=== PATIENT | male | born 1970 | race Two or more races ===

== ENCOUNTER 2019-12-04 09:29 | Emergency (ER) | payer MEDICAID ==
[~2019-12-04 09:29] MED LIST: DOXY100C; METF1000; NOR10T; SULF-98
[2019-12-04 10:42] LABS: Nucleated Red Blood Cells % 0.1 %
[2019-12-04 10:50] LABS: Basophils # (auto) 0.1 10 ^3/uL (0-0.2); Basophils % (auto) 2.2 % (0.0-2.0); Eosinophils # (auto) 0.2 10 ^3/uL (0-0.8); Eosinophils % (auto) 4.7 % (0.0-7.0); Hemoglobin 15.7 g/dL (13.5-17.5); Lymphocytes # (auto) 0.7 10 ^3/uL (0.4-5.4); Lymphocytes % (auto) 15.6 % (10.0-50.0); Mean Corpuscular Hemoglobin 35.9 pg (28.0-32.0); Mean Corpuscular Volume 105.4 fL (80.0-100.0); Monocytes # (auto) 0.5 10 ^3/uL (0-1.3); Monocytes % (auto) 11.4 % (0.0-12.0); Neutrophils % (auto) 66.1 % (37.0-80.0); Platelet Count (auto) 154 10^3/uL (140-450); Red Blood Cells 4.36 10^6/uL (4.5-5.90); Red Cell Distribution Width 12.5 % (11.8-14.3); White Blood Cell 4.5 10^3/uL (4.4-10.8)
[2019-12-04 10:59] LABS: Albumin 3.2 g/dL (3.4-5.0); Calcium 8.6 mg/dL (8.5-10.1); Potassium 4.2 mmol/L (3.5-5.1)
[2019-12-04 11:05] LABS: Bilirubin, Total 0.5 mg/dL (0.2-1.0); Total Protein 7.4 g/dL (6.4-8.2)
[2019-12-04] MEDS ORDERED: LISINOPRIL 5 MG TAB PO SCH (13:30)
[2019-12-04] MEDS ORDERED: METF-372 PO (15:36)
[2019-12-04] MEDS ORDERED: MET25T PO (15:36)
[2019-12-04] MEDS ORDERED: LISI-275 PO (15:36)
[2019-12-04] MEDS ORDERED: METOPROLOL TARTRATE 50 MG TAB PO SCH (16:00)
--- NOTE | 2019-12-04 16:19 | NUR ---
ss consult Per ss consult home health safety evaluation. Patient agrees to home health. order has been sent to [facility]. [employer] corrections caseworker will work on auth for [facility]. Addendum: 12/04/19 at 1622 by Bonnie SUAZO Amended: Links added.
--- NOTE | 2019-12-04 16:35 | NUR ---
re-assessment Per Marilee at [facility] she has accepted patient for service to start on 12/06/2019. Addendum: 12/05/19 at 1124 by Bonnie SUAZO Amended: Links added.
[2019-12-04 17:25] VITALS: BP 172/95
[2019-12-04] MEDS ORDERED: METOPROLOL TARTRATE 25 MG TAB PO SCH (22:00)
--- NOTE | 2019-12-05 09:42 | NUR ---
I faxed home health order to [facility]-requesting authorization for [facility].
--- NOTE | 2019-12-05 14:17 | NUR ---
1415 12/05/19 I received a call from Aleksandra at [facility] letting me know that the authorization for [facility] is [id number].
== END 2019-12-04 19:24 | disposition home or self-care (01) ==
LOC: ER 09:29 → EDBD 09:29 → ER 18:03
DX: I25.10 Atherosclerotic heart disease of native coronary artery without angina pectoris (principal); E11.65 Type 2 diabetes mellitus with hyperglycemia; Z79.899 Other long term (current) drug therapy
CPT/HCPCS: 36415; 71045; 80053; 82962; 84484; 85025; 93005; 93306

== ENCOUNTER 2021-10-30 18:11 | Emergency (ER) | payer MEDICAID ==
[~2021-10-30] VITALS: Ht 162.6 cm; Wt 86.4 kg
[~2021-10-30 18:11] MED LIST changes: -DOXY100C; +LISI-275 PO; +MET25T PO; +METF-372 PO; -NOR10T; -SULF-98
[2021-10-30 18:26] VITALS: BP 129/82
[2021-10-30] MEDS ORDERED: SODIUM CHLORIDE 0.9% 1,000 ML IVB ONE (18:45)
[2021-10-30] MEDS ORDERED: PANTOPRAZOLE 40 MG/10 ML VIAL INJ IV ONE (18:45)
[2021-10-30 20:01] LABS: Basophils # (auto) 0.1 10 ^3/uL (0-0.2); Eosinophils # (auto) 0 10 ^3/uL (0-0.8); Eosinophils % (auto) 0.2 % (0.0-7.0); Mean Corpuscular Volume 104.3 fL (80.0-100.0); White Blood Cell 11.6 10^3/uL (4.4-10.8)
[2021-10-30 20:03] LABS: Basophils % (auto) 0.9 % (0.0-2.0); Hematocrit 41.1 % (41.0-53.0); Hemoglobin 13.7 g/dL (13.5-17.5); Lymphocytes % (auto) 8.4 % (10.0-50.0); Mean Corpuscular Hemoglobin 34.8 pg (28.0-32.0); Mean Corpuscular Hgb Conc. 33.4 g/dL (32.0-36.0); Monocytes # (auto) 0.7 10 ^3/uL (0-1.3); Monocytes % (auto) 6.4 % (0.0-12.0); Neutrophils # (auto) 9.8 10 ^3/uL (1.6-8.6); Neutrophils % (auto) 84.1 % (37.0-80.0); Nucleated Red Blood Cells % 0.1 %; Red Blood Cells 3.94 10^6/uL (4.5-5.90); Red Cell Distribution Width 13.1 % (11.8-14.3)
[2021-10-30 20:17] LABS: INR 1.16 (0.9-1.15); Partial Thromboplastin Time 27.9 sec (24.6-33.4)
[2021-10-30 20:26] LABS: Albumin 2.8 g/dL (3.4-5.0); BUN/Creatinine Ratio 31.4; Calcium 8.1 mg/dL (8.5-10.1)
[2021-10-30 20:28] LABS: Bilirubin, Total 1.6 mg/dL (0.2-1.0); Total Protein 6.6 g/dL (6.4-8.2)
== END 2021-10-30 19:50 | disposition left against medical advice (07) ==
LOC: ER 18:11 → EDBD 18:11 → ER 19:50
DX: R11.10 Vomiting, unspecified (principal); F10.10 Alcohol abuse, uncomplicated; E11.9 Type 2 diabetes mellitus without complications; Z79.899 Other long term (current) drug therapy; Y90.9 Presence of alcohol in blood, level not specified
CPT/HCPCS: 36415; 80053; 83690; 85025; 85610; 85730; 93005; 96361; 96374; 99284; C9113; J7030

== ENCOUNTER 2021-11-08 00:11 | Inpatient (IN) | payer MEDICAID ==
[~2021-11-08] VITALS: Ht 167.6 cm; Wt 99.6 kg
[2021-11-08] VITALS (78 sets, daily range): BP systolic 70–128; BP diastolic 26–85
[2021-11-08 00:46] LABS: Basophils # (auto) 0.1 10 ^3/uL (0-0.2); Mean Corpuscular Hgb Conc. 34.9 g/dL (32.0-36.0); Red Blood Cells 1.25 10^6/uL (4.5-5.90)
[2021-11-08 00:48] LABS: Basophils % (auto) 1.2 % (0.0-2.0); Eosinophils # (auto) 0.3 10 ^3/uL (0-0.8); Hematocrit 12.5 % (41.0-53.0); Lymphocytes # (auto) 1.4 10 ^3/uL (0.4-5.4); Lymphocytes % (auto) 16.2 % (10.0-50.0); Mean Corpuscular Hemoglobin 34.8 pg (28.0-32.0); Monocytes # (auto) 0.9 10 ^3/uL (0-1.3); Monocytes % (auto) 10.1 % (0.0-12.0); Neutrophils # (auto) 5.9 10 ^3/uL (1.6-8.6); Neutrophils % (auto) 69.5 % (37.0-80.0); Red Cell Distribution Width 18.7 % (11.8-14.3); White Blood Cell 8.5 10^3/uL (4.4-10.8)
[2021-11-08 00:56] LABS: Hemoglobin 4.3 g/dL (13.5-17.5)
[2021-11-08] MEDS ORDERED: SODIUM CHLORIDE 0.9% 1,000 ML IV ONE (01:00)
[2021-11-08 01:03] LABS: Albumin 1.8 g/dL (3.4-5.0); BUN/Creatinine Ratio 22.7; Calcium 6.9 mg/dL (8.5-10.1); Potassium 4.5 mmol/L (3.5-5.1)
[2021-11-08 01:06] LABS: Bilirubin, Total 0.2 mg/dL (0.2-1.0); INR 1.13 (0.9-1.15)
[2021-11-08] MEDS ORDERED: ALBUMIN 25% 100 ML IV ONE (05:15)
[2021-11-08] MEDS ORDERED: ONDANSETRON HCL 4 MG/2 ML VIAL IV PRN (05:15)
[2021-11-08] MEDS ORDERED: DEXTROSE (50%) 50ML SYRG IV PRN (05:15)
[2021-11-08] MEDS ORDERED: ACETAMINOPHEN 325 MG TAB PO PRN (05:15)
[2021-11-08] MEDS ORDERED: DOCUSATE SOD 100 MG CAP PO PRN (05:15)
[2021-11-08] MEDS ORDERED: CALCIUM GLUC 1,000mg/50ml-NS 50 ML IV ONE (05:15)
[2021-11-08] MEDS ORDERED: MORPHINE SULFATE INJ 2 MG/ml SYRG IV PRN (05:45)
[2021-11-08] MEDS ORDERED: NITROGLYCERIN 0.4 MG SL TAB SL PRN (05:45)
[2021-11-08] MEDS ORDERED: NOREPINEPHRINE 8 MG/250ML KIT 250 ML IV ONE (06:19)
[2021-11-08] MEDS: NOREPINEPHRINE 8 MG/250ML KIT 250 ML IV SCH ×3 (06:29→23:51)
[2021-11-08] MEDS: ACCU-CHEK COMFORT CURVE STRIP VI SCH ×4 (07:00→22:10)
[2021-11-08 08:08] LABS: Albumin 1.7 g/dL (3.4-5.0); Calcium 6.3 mg/dL (8.5-10.1); Potassium 5.2 mmol/L (3.5-5.1)
[2021-11-08 08:13] LABS: BUN/Creatinine Ratio 26.5; Basophils # (auto) 0.1 10 ^3/uL (0-0.2); Basophils % (auto) 0.6 % (0.0-2.0); Bilirubin, Total 0.4 mg/dL (0.2-1.0); Eosinophils # (auto) 0.1 10 ^3/uL (0-0.8); Eosinophils % (auto) 0.5 % (0.0-7.0); Hematocrit 24.2 % (41.0-53.0); Hemoglobin 7.8 g/dL (13.5-17.5); Lymphocytes # (auto) 2.1 10 ^3/uL (0.4-5.4); Lymphocytes % (auto) 11.6 % (10.0-50.0); Mean Corpuscular Hemoglobin 30.2 pg (28.0-32.0); Mean Corpuscular Hgb Conc. 32.3 g/dL (32.0-36.0); Mean Corpuscular Volume 93.3 fL (80.0-100.0); Monocytes # (auto) 1.5 10 ^3/uL (0-1.3); Monocytes % (auto) 8.5 % (0.0-12.0); Neutrophils % (auto) 78.8 % (37.0-80.0); Red Blood Cells 2.59 10^6/uL (4.5-5.90); Red Cell Distribution Width 16.3 % (11.8-14.3); Total Protein 3.3 g/dL (6.4-8.2); White Blood Cell 17.8 10^3/uL (4.4-10.8)
[2021-11-08] MEDS: SOD CHL 0.45% 1,000 ML IV SCH (09:15)
[2021-11-08] MEDS: InsuLIN REG 1unit/0.01ml Soln (100units/ml) SC SCH ×4 (09:15→22:14)
[2021-11-08] MEDS: MORPHINE SULFATE INJ 2 MG/ml SYRG IV PRN (09:30)
[2021-11-08] MEDS: FAMOTIDINE (10MG/ML) 2ML VL IV SCH (09:42)
[2021-11-08] MEDS ORDERED: GOLYTELY 4L KIT PO ONE (10:15)
[2021-11-08] MEDS ORDERED: LORazepam 2MG/ML-1ML VIAL ONE (17:37)
[2021-11-08] MEDS ORDERED: ROCURONIUM 10MG/ML 10ML VIAL IV ONE (17:42)
[2021-11-08] MEDS ORDERED: ETOMIDATE (2MG/ML) 20ML VIAL IV ONE ×2 (17:42→17:45)
[2021-11-08] MEDS ORDERED: SUCCINYLCHOLINE CHLORIDE 20 MG/ML 10ML VIAL IV ONE (17:43)
[2021-11-08] MEDS: LORazepam 2MG/ML-1ML VIAL IV PRN (17:45)
[2021-11-08] MEDS ORDERED: MIDAZOLAM DRIP 50 mg/50mL 50 ML IV ONE (17:45)
[2021-11-08] MEDS: fentaNYL Drip 2500mCg/250mlNS 250 ML IV SCH (18:31)
[2021-11-08] MEDS: MIDAZOLAM DRIP 50 mg/50mL 50 ML IV SCH ×3 (18:32→23:23)
[2021-11-08 18:42] LABS: Hematocrit 12.6 % (41.0-53.0); Mean Corpuscular Hemoglobin 31.2 pg (28.0-32.0); Mean Corpuscular Hgb Conc. 32.8 g/dL (32.0-36.0); Mean Corpuscular Volume 95.2 fL (80.0-100.0); Red Blood Cells 1.33 10^6/uL (4.5-5.90); Red Cell Distribution Width 16.6 % (11.8-14.3); White Blood Cell 10.8 10^3/uL (4.4-10.8)
[2021-11-08 18:52] LABS: Albumin 1.6 g/dL (3.4-5.0); Calcium 6.2 mg/dL (8.5-10.1)
[2021-11-08 18:54] LABS: BUN/Creatinine Ratio 20.4; Bilirubin, Total 0.3 mg/dL (0.2-1.0); Total Protein 3.1 g/dL (6.4-8.2)
[2021-11-08 18:58] LABS: Hemoglobin 4.1 g/dL (13.5-17.5)
[2021-11-08 18:59] LABS: Basophils % (manual) 0 (0.0-2.0); Blast Cells 0; Eosinophils % (manual) 0 (0-7); Myelocytes % 0; Promyelocytes % 0; Reactive Lymphocytes 0
[2021-11-08 19:37] LABS: Band Neutrophils % (manual) 4; Lymphocytes % (manual) 21 (10.0-50.0); Metamyelocytes % 1; Monocytes % (manual) 6 (0-12)
[2021-11-08] MEDS: PHENYLEPHRINE IV 250 ML IV SCH (19:56)
[2021-11-09] VITALS (106 sets, daily range): BP systolic 75–163; BP diastolic 28–85
[2021-11-09 01:16] LABS: Calcium 6.1 mg/dL (8.5-10.1)
[2021-11-09 01:19] LABS: Basophils # (auto) 0.1 10 ^3/uL (0-0.2); Basophils % (auto) 0.8 % (0.0-2.0); Eosinophils # (auto) 0 10 ^3/uL (0-0.8); Eosinophils % (auto) 0.1 % (0.0-7.0); Hematocrit 26.3 % (41.0-53.0); Hemoglobin 8.7 g/dL (13.5-17.5); Lymphocytes # (auto) 2.4 10 ^3/uL (0.4-5.4); Lymphocytes % (auto) 13.5 % (10.0-50.0); Mean Corpuscular Volume 90.9 fL (80.0-100.0); Monocytes # (auto) 2.6 10 ^3/uL (0-1.3); Monocytes % (auto) 14.4 % (0.0-12.0); Neutrophils # (auto) 12.8 10 ^3/uL (1.6-8.6); Neutrophils % (auto) 71.2 % (37.0-80.0); Nucleated Red Blood Cells % 0.4 %; Red Blood Cells 2.89 10^6/uL (4.5-5.90); Red Cell Distribution Width 15.1 % (11.8-14.3); White Blood Cell 17.9 10^3/uL (4.4-10.8)
[2021-11-09 01:21] LABS: Potassium 6.2 mmol/L (3.5-5.1)
[2021-11-09] MEDS ORDERED: CALCIUM GLUC 1,000mg/50ml-NS 50 ML IV ONE (02:00)
[2021-11-09] MEDS ORDERED: DEXTROSE (50%) 50ML SYRG IV ONE (02:00)
[2021-11-09] MEDS ORDERED: InsuLIN REG 1unit/0.01ml Soln (100units/ml) IV ONE (02:00)
[2021-11-09] MEDS ORDERED: ALBUTEROL SULF 2.5 MG/0.5ML(0.5%) NEB SOLN NEB ONE ×2 (02:00→02:30)
[2021-11-09] MEDS: SOD CHL 0.45% 1,000 ML IV SCH ×2 (02:41→09:14)
[2021-11-09] MEDS: PHENYLEPHRINE IV 250 ML IV SCH ×3 (03:05→19:45)
[2021-11-09] MEDS: MIDAZOLAM DRIP 50 mg/50mL 50 ML IV SCH ×6 (03:50→23:30)
[2021-11-09 04:43] LABS: Basophils # (auto) 0.2 10 ^3/uL (0-0.2); Basophils % (auto) 1.1 % (0.0-2.0); Eosinophils # (auto) 0.1 10 ^3/uL (0-0.8); Eosinophils % (auto) 0.5 % (0.0-7.0); Hematocrit 23.4 % (41.0-53.0); Hemoglobin 7.7 g/dL (13.5-17.5); Lymphocytes # (auto) 2.9 10 ^3/uL (0.4-5.4); Lymphocytes % (auto) 17.3 % (10.0-50.0); Mean Corpuscular Hemoglobin 30.3 pg (28.0-32.0); Mean Corpuscular Hgb Conc. 32.8 g/dL (32.0-36.0); Mean Corpuscular Volume 92.3 fL (80.0-100.0); Monocytes # (auto) 2.4 10 ^3/uL (0-1.3); Neutrophils # (auto) 11.4 10 ^3/uL (1.6-8.6); Neutrophils % (auto) 67.1 % (37.0-80.0); Nucleated Red Blood Cells % 0.9 %; Red Blood Cells 2.54 10^6/uL (4.5-5.90); Red Cell Distribution Width 15.6 % (11.8-14.3); White Blood Cell 16.9 10^3/uL (4.4-10.8)
[2021-11-09 05:13] LABS: Calcium 6.5 mg/dL (8.5-10.1); Potassium 4.7 mmol/L (3.5-5.1)
[2021-11-09 05:17] LABS: BUN/Creatinine Ratio 16.9; Bilirubin, Total 0.4 mg/dL (0.2-1.0); Total Protein 3.6 g/dL (6.4-8.2)
[2021-11-09] MEDS: NOREPINEPHRINE 8 MG/250ML KIT 250 ML IV SCH ×2 (07:13→14:19)
[2021-11-09] MEDS: InsuLIN REG 1unit/0.01ml Soln (100units/ml) SC SCH ×4 (07:46→23:03)
[2021-11-09] MEDS: ACCU-CHEK COMFORT CURVE STRIP VI SCH ×4 (07:46→22:57)
[2021-11-09] MEDS: FAMOTIDINE (10MG/ML) 2ML VL IV SCH (09:50)
[2021-11-09] MEDS: fentaNYL Drip 2500mCg/250mlNS 250 ML IV SCH ×2 (11:50→23:33)
[2021-11-09] MEDS ORDERED: FOLIC ACID 1 MG, MULTIPLE VITAMIN 10 ML, MAGNESIUM SULF SDV 50% 8 MEQ, THIAMINE INJ 100... INJ SCH ×5 (12:00)
[2021-11-09] MEDS: ALBUMIN 25% 100 ML IV SCH ×2 (14:53→22:55)
[2021-11-09] MEDS: OCTREOTIDE ACETATE 100 MCG/ML VL SUBCUT SCH ×2 (14:54→22:56)
[2021-11-09 15:07] LABS: Magnesium 1.5 mg/dL (1.6-2.6); Phosphorus 4.7 mg/dL (2.5-4.90)
[2021-11-09] MEDS: SODIUM BICARBONATE 50ML VIAL 100 ML in D5W 5% 1,000 ML IV SCH ×2 (15:50→22:56)
[2021-11-09] MEDS ORDERED: GOLYTELY 4L KIT PO ONE (16:00)
[2021-11-09 20:40] LABS: Hepatitis C Antibody Negative (Negative)
[2021-11-09 22:19] LABS: Basophils # (auto) 0.2 10 ^3/uL (0-0.2); Hemoglobin 7.3 g/dL (13.5-17.5); Mean Corpuscular Volume 90.5 fL (80.0-100.0); Monocytes # (auto) 1.7 10 ^3/uL (0-1.3); Red Cell Distribution Width 15.2 % (11.8-14.3); White Blood Cell 14.7 10^3/uL (4.4-10.8)
[2021-11-09 22:21] LABS: Basophils % (auto) 1.3 % (0.0-2.0); Eosinophils # (auto) 0.2 10 ^3/uL (0-0.8); Eosinophils % (auto) 1.4 % (0.0-7.0); Hematocrit 21.8 % (41.0-53.0); Lymphocytes % (auto) 7.1 % (10.0-50.0); Mean Corpuscular Hemoglobin 30.3 pg (28.0-32.0); Mean Corpuscular Hgb Conc. 33.5 g/dL (32.0-36.0); Monocytes % (auto) 11.6 % (0.0-12.0); Neutrophils # (auto) 11.5 10 ^3/uL (1.6-8.6); Neutrophils % (auto) 78.6 % (37.0-80.0); Nucleated Red Blood Cells % 0.8 %
[2021-11-09] MEDS ORDERED: SODIUM BICARBONATE 8.4 % INJ 50ML VIAL IV ONE (22:39)
[2021-11-10] VITALS (112 sets, daily range): BP systolic 92–151; BP diastolic 32–61
[2021-11-10] MEDS: PHENYLEPHRINE IV 250 ML IV SCH ×3 (04:05→20:45)
[2021-11-10 04:32] LABS: Hematocrit 20.2 % (41.0-53.0); Mean Corpuscular Hemoglobin 30.3 pg (28.0-32.0); Mean Corpuscular Hgb Conc. 33.5 g/dL (32.0-36.0); Mean Corpuscular Volume 90.6 fL (80.0-100.0); Red Blood Cells 2.23 10^6/uL (4.5-5.90); White Blood Cell 12.9 10^3/uL (4.4-10.8)
[2021-11-10 04:43] LABS: INR 1.24 (0.9-1.15); Partial Thromboplastin Time 41.5 sec (24.6-33.4)
[2021-11-10 04:49] LABS: Calcium 6.6 mg/dL (8.5-10.1); Potassium 4.9 mmol/L (3.5-5.1)
[2021-11-10 04:55] LABS: Hemoglobin 6.8 g/dL (13.5-17.5)
[2021-11-10 04:56] LABS: Basophils % (manual) 0 (0.0-2.0); Blast Cells 0; Eosinophils % (manual) 0 (0-7); Reactive Lymphocytes 0
[2021-11-10] MEDS ORDERED: SODIUM BICARBONATE 8.4 % INJ 50ML VIAL IV ONE (06:09)
[2021-11-10] MEDS: SODIUM BICARBONATE 50ML VIAL 100 ML in D5W 5% 1,000 ML IV SCH ×3 (06:22→21:50)
[2021-11-10] MEDS: ACCU-CHEK COMFORT CURVE STRIP VI SCH ×4 (06:27→21:50)
[2021-11-10] MEDS: InsuLIN REG 1unit/0.01ml Soln (100units/ml) SC SCH ×4 (06:28→21:55)
[2021-11-10] MEDS: OCTREOTIDE ACETATE 100 MCG/ML VL SUBCUT SCH ×3 (06:35→21:49)
[2021-11-10 07:31] LABS: Band Neutrophils % (manual) 10; Lymphocytes % (manual) 7 (10.0-50.0); Metamyelocytes % 5; Monocytes % (manual) 8 (0-12); Myelocytes % 3; Promyelocytes % 3
[2021-11-10] MEDS: ALBUMIN 25% 100 ML IV SCH (08:51)
[2021-11-10] MEDS ORDERED: MIDAZOLAM HCL 5 MG/ML-1ML VIAL ONE (08:58)
[2021-11-10] MEDS ORDERED: diphenhdrAMINE HCL 50 MG/1 ML VL ONE (08:58)
[2021-11-10] MEDS ORDERED: SODIUM CHLORIDE LOCK 0 ML ONE (08:58)
[2021-11-10] MEDS ORDERED: fentaNYL CITRATE 100 MCG/2 ML VL ONE (08:58)
[2021-11-10] MEDS: FAMOTIDINE (10MG/ML) 2ML VL IV SCH (10:10)
[2021-11-10] MEDS: MIDAZOLAM DRIP 50 mg/50mL 50 ML IV SCH ×2 (10:10→21:49)
[2021-11-10] MEDS ORDERED: PANTOPRAZOLE 40 MG/10 ML VIAL INJ IV ONE (11:00)
[2021-11-10] MEDS: fentaNYL Drip 2500mCg/250mlNS 250 ML IV SCH ×2 (12:00→23:49)
[2021-11-10 13:12] LABS: Protein, Urine 56.8 mg/dL (0.0-11.9)
[2021-11-10 19:10] LABS: Urine Bacteria NONE SEEN /hpf (None Seen); Urine Blood Negative /uL (Negative); Urine Hyaline Cast FEW /lpf (0 - 2); Urine Specific Gravity 1.015 (1.001-1.035); Urine WBC 4 /hpf (0 - 3)
[2021-11-10 19:38] LABS: Hemoglobin 7.6 g/dL (13.5-17.5)
[2021-11-10 19:39] LABS: Hematocrit 22.4 % (41.0-53.0)
[2021-11-10] MEDS: PANTOPRAZOLE 40 MG/10 ML VIAL INJ IV SCH (21:49)
[2021-11-10] MEDS: FOLIC ACID 1 MG in D5W 5% 50 ML INJ SCH (22:30)
[2021-11-10] MEDS: THIAMINE 100mg/ml INJ (200mg/2ml VIAL) IV SCH (22:39)
[2021-11-11] VITALS (105 sets, daily range): BP systolic 101–175; BP diastolic 35–88
[2021-11-11] MEDS: SODIUM BICARBONATE 50ML VIAL 100 ML in D5W 5% 1,000 ML IV SCH ×4 (02:40→20:00)
[2021-11-11 04:07] LABS: Basophils # (auto) 0.1 10 ^3/uL (0-0.2); Basophils % (auto) 0.7 % (0.0-2.0); Eosinophils # (auto) 0.1 10 ^3/uL (0-0.8); Eosinophils % (auto) 1.5 % (0.0-7.0); Mean Corpuscular Hemoglobin 29.6 pg (28.0-32.0); Monocytes # (auto) 0.9 10 ^3/uL (0-1.3); Neutrophils # (auto) 6.8 10 ^3/uL (1.6-8.6); White Blood Cell 8.6 10^3/uL (4.4-10.8)
[2021-11-11 04:09] LABS: Hematocrit 21.3 % (41.0-53.0); Lymphocytes # (auto) 0.8 10 ^3/uL (0.4-5.4); Lymphocytes % (auto) 9.1 % (10.0-50.0); Mean Corpuscular Hgb Conc. 32.7 g/dL (32.0-36.0); Mean Corpuscular Volume 90.4 fL (80.0-100.0); Monocytes % (auto) 10.1 % (0.0-12.0); Neutrophils % (auto) 78.6 % (37.0-80.0); Nucleated Red Blood Cells % 0.1 %; Red Blood Cells 2.35 10^6/uL (4.5-5.90); Red Cell Distribution Width 15.2 % (11.8-14.3)
[2021-11-11 04:33] LABS: Calcium 6.9 mg/dL (8.5-10.1)
[2021-11-11 04:35] LABS: BUN/Creatinine Ratio 22.8
[2021-11-11] MEDS: PHENYLEPHRINE IV 250 ML IV SCH ×3 (05:05→21:45)
[2021-11-11] MEDS: OCTREOTIDE ACETATE 100 MCG/ML VL SUBCUT SCH ×2 (06:23→22:00)
[2021-11-11] MEDS: ACCU-CHEK COMFORT CURVE STRIP VI SCH ×4 (06:23→22:30)
[2021-11-11] MEDS: InsuLIN REG 1unit/0.01ml Soln (100units/ml) SC SCH ×4 (06:25→22:30)
[2021-11-11] MEDS: NOREPINEPHRINE 8 MG/250ML KIT 250 ML IV SCH (06:30)
[2021-11-11] MEDS ORDERED: DOPamine 1600MCG/ML D5W 250 ML IV SCH ×2 (09:45→12:49)
[2021-11-11] MEDS: PANTOPRAZOLE 40 MG/10 ML VIAL INJ IV SCH ×2 (10:06→22:16)
[2021-11-11] MEDS: THIAMINE 100mg/ml INJ (200mg/2ml VIAL) IV SCH (10:06)
[2021-11-11] MEDS: FOLIC ACID 1 MG in D5W 5% 50 ML INJ SCH (10:17)
[2021-11-11] MEDS: MIDAZOLAM DRIP 50 mg/50mL 50 ML IV SCH (20:00)
[2021-11-11] MEDS: fentaNYL Drip 2500mCg/250mlNS 250 ML IV SCH (22:22)
[2021-11-11 22:47] LABS: Basophils # (auto) 0.1 10 ^3/uL (0-0.2); Basophils % (auto) 0.8 % (0.0-2.0); Eosinophils # (auto) 0.2 10 ^3/uL (0-0.8); Hematocrit 26.5 % (41.0-53.0); Hemoglobin 8.9 g/dL (13.5-17.5); Lymphocytes # (auto) 0.6 10 ^3/uL (0.4-5.4); Lymphocytes % (auto) 7.7 % (10.0-50.0); Mean Corpuscular Hemoglobin 30.2 pg (28.0-32.0); Mean Corpuscular Hgb Conc. 33.7 g/dL (32.0-36.0); Mean Corpuscular Volume 89.5 fL (80.0-100.0); Monocytes # (auto) 1.2 10 ^3/uL (0-1.3); Monocytes % (auto) 14.4 % (0.0-12.0); Neutrophils # (auto) 6.1 10 ^3/uL (1.6-8.6); Neutrophils % (auto) 75.1 % (37.0-80.0); Nucleated Red Blood Cells % 0.2 %; Red Blood Cells 2.96 10^6/uL (4.5-5.90); Red Cell Distribution Width 14.7 % (11.8-14.3); White Blood Cell 8.2 10^3/uL (4.4-10.8)
[2021-11-12] VITALS (99 sets, daily range): BP systolic 99–180; BP diastolic 55–87
[2021-11-12] MEDS: hydrALAZINE HCL 20 MG/ML VL IV PRN (00:12)
[2021-11-12] MEDS: MIDAZOLAM DRIP 50 mg/50mL 50 ML IV SCH ×6 (00:57→21:38)
[2021-11-12] MEDS: SODIUM BICARBONATE 50ML VIAL 100 ML in D5W 5% 1,000 ML IV SCH ×2 (04:00→10:41)
[2021-11-12 04:17] LABS: Basophils # (auto) 0.1 10 ^3/uL (0-0.2); Basophils % (auto) 0.8 % (0.0-2.0); Eosinophils # (auto) 0.2 10 ^3/uL (0-0.8); Eosinophils % (auto) 2.3 % (0.0-7.0); Hematocrit 26.6 % (41.0-53.0); Hemoglobin 9.2 g/dL (13.5-17.5); Lymphocytes # (auto) 0.6 10 ^3/uL (0.4-5.4); Lymphocytes % (auto) 6.8 % (10.0-50.0); Mean Corpuscular Hemoglobin 31.1 pg (28.0-32.0); Mean Corpuscular Hgb Conc. 34.5 g/dL (32.0-36.0); Mean Corpuscular Volume 90.1 fL (80.0-100.0); Monocytes # (auto) 1.2 10 ^3/uL (0-1.3); Monocytes % (auto) 13.4 % (0.0-12.0); Neutrophils # (auto) 6.9 10 ^3/uL (1.6-8.6); Neutrophils % (auto) 76.7 % (37.0-80.0); Nucleated Red Blood Cells % 0.1 %; Red Blood Cells 2.95 10^6/uL (4.5-5.90); Red Cell Distribution Width 14.6 % (11.8-14.3)
[2021-11-12 04:39] LABS: Potassium 3.9 mmol/L (3.5-5.1)
[2021-11-12 04:46] LABS: BUN/Creatinine Ratio 26.4; Calcium 6.8 mg/dL (8.5-10.1)
[2021-11-12] MEDS: OCTREOTIDE ACETATE 100 MCG/ML VL SUBCUT SCH ×3 (05:24→21:39)
[2021-11-12] MEDS: ACCU-CHEK COMFORT CURVE STRIP VI SCH ×4 (05:52→21:55)
[2021-11-12] MEDS: InsuLIN REG 1unit/0.01ml Soln (100units/ml) SC SCH ×4 (05:53→21:39)
[2021-11-12] MEDS: PHENYLEPHRINE IV 250 ML IV SCH ×3 (06:05→22:45)
[2021-11-12] MEDS: NOREPINEPHRINE 8 MG/250ML KIT 250 ML IV SCH (06:25)
[2021-11-12] MEDS ORDERED: SODIUM CHLORIDE LOCK 10 ML ONE (09:00)
[2021-11-12] MEDS ORDERED: LIDOCAINE 2%HCL (LOCAL ANESTH.) INJ 20ML MDV ONE (09:00)
[2021-11-12] MEDS ORDERED: LIDOCAINE 2% JELLY 11ml (GLYDO) ONE (09:01)
[2021-11-12] MEDS ORDERED: EPINEPHrine HCL 1 MG/1 ML AMP ONE (09:01)
[2021-11-12] MEDS ORDERED: GLYCOPYRROLATE 0.2 MG/ML 1ML VIAL ONE (09:01)
[2021-11-12] MEDS ORDERED: MIDAZOLAM HCL 5 MG/ML-1ML VIAL ONE (09:01)
[2021-11-12] MEDS ORDERED: fentaNYL CITRATE 100 MCG/2 ML VL ONE (09:01)
[2021-11-12] MEDS ORDERED: NALOXONE HCL 0.4 MG/ML VIAL ONE (09:02)
[2021-11-12] MEDS ORDERED: FLUMAZENIL 0.1 MG/ML INJ 10ML MDV IV ONE (09:02)
[2021-11-12] MEDS ORDERED: EPINEPHrine HCL 1 MG/10 ML SYRG ONE (09:03)
[2021-11-12] MEDS: PANTOPRAZOLE 40 MG/10 ML VIAL INJ IV SCH ×2 (10:01→21:35)
[2021-11-12] MEDS: THIAMINE 100mg/ml INJ (200mg/2ml VIAL) IV SCH (10:01)
[2021-11-12] MEDS: FOLIC ACID 1 MG in D5W 5% 50 ML INJ SCH (10:02)
[2021-11-12] MEDS: fentaNYL Drip 2500mCg/250mlNS 250 ML IV SCH ×2 (10:03→21:51)
[2021-11-12] MEDS: PROPOFOL 100 ML IV SCH ×2 (10:55→21:37)
[2021-11-12] MEDS: SODIUM CHLORIDE 0.9% 1,000 ML IV SCH ×2 (12:15→23:30)
[2021-11-13] VITALS (90 sets, daily range): BP systolic 102–173; BP diastolic 54–87
[2021-11-13] MEDS: MIDAZOLAM DRIP 50 mg/50mL 50 ML IV SCH ×3 (02:32→12:09)
[2021-11-13 04:15] LABS: Basophils # (auto) 0.1 10 ^3/uL (0-0.2); Basophils % (auto) 0.7 % (0.0-2.0); Eosinophils # (auto) 0.5 10 ^3/uL (0-0.8); Eosinophils % (auto) 3.8 % (0.0-7.0); Hematocrit 26.3 % (41.0-53.0); Hemoglobin 8.9 g/dL (13.5-17.5); Lymphocytes # (auto) 0.9 10 ^3/uL (0.4-5.4); Lymphocytes % (auto) 7.3 % (10.0-50.0); Mean Corpuscular Hemoglobin 30.7 pg (28.0-32.0); Mean Corpuscular Volume 90.5 fL (80.0-100.0); Monocytes # (auto) 1.6 10 ^3/uL (0-1.3); Monocytes % (auto) 13.2 % (0.0-12.0); Neutrophils # (auto) 9.1 10 ^3/uL (1.6-8.6); Red Cell Distribution Width 15.2 % (11.8-14.3); White Blood Cell 12.1 10^3/uL (4.4-10.8)
[2021-11-13 04:38] LABS: Calcium 6.9 mg/dL (8.5-10.1); Potassium 3.6 mmol/L (3.5-5.1)
[2021-11-13 04:40] LABS: BUN/Creatinine Ratio 25.3
[2021-11-13] MEDS: OCTREOTIDE ACETATE 100 MCG/ML VL SUBCUT SCH ×3 (06:00→21:38)
[2021-11-13] MEDS: NOREPINEPHRINE 8 MG/250ML KIT 250 ML IV SCH (06:19)
[2021-11-13] MEDS: PHENYLEPHRINE IV 250 ML IV SCH ×2 (06:20→15:25)
[2021-11-13] MEDS: InsuLIN REG 1unit/0.01ml Soln (100units/ml) SC SCH ×4 (06:34→21:39)
[2021-11-13] MEDS: ACCU-CHEK COMFORT CURVE STRIP VI SCH ×4 (06:35→21:30)
[2021-11-13] MEDS: PROPOFOL 100 ML IV SCH (06:44)
[2021-11-13] MEDS: THIAMINE 100mg/ml INJ (200mg/2ml VIAL) IV SCH (10:06)
[2021-11-13] MEDS: FOLIC ACID 1 MG in D5W 5% 50 ML INJ SCH (10:06)
[2021-11-13] MEDS: PANTOPRAZOLE 40 MG/10 ML VIAL INJ IV SCH ×2 (10:06→21:30)
[2021-11-13] MEDS: SODIUM CHLORIDE 0.9% 1,000 ML IV SCH ×2 (10:07→18:15)
[2021-11-13] MEDS: fentaNYL Drip 2500mCg/250mlNS 250 ML IV SCH (11:33)
[2021-11-13] MEDS: D5W/SOD CHLO 0.9% 1,000 ML IV SCH (20:25)
[2021-11-13] MEDS: hydrALAZINE HCL 20 MG/ML VL IV PRN (20:26)
[2021-11-14] VITALS (68 sets, daily range): BP systolic 100–170; BP diastolic 47–97
[2021-11-14 04:23] LABS: Basophils # (auto) 0.1 10 ^3/uL (0-0.2); Basophils % (auto) 0.9 % (0.0-2.0); Eosinophils # (auto) 0.2 10 ^3/uL (0-0.8); Hematocrit 28.1 % (41.0-53.0); Hemoglobin 9.5 g/dL (13.5-17.5); Lymphocytes # (auto) 0.6 10 ^3/uL (0.4-5.4); Lymphocytes % (auto) 5.9 % (10.0-50.0); Mean Corpuscular Hemoglobin 30.5 pg (28.0-32.0); Mean Corpuscular Hgb Conc. 33.8 g/dL (32.0-36.0); Mean Corpuscular Volume 90.2 fL (80.0-100.0); Monocytes # (auto) 1.3 10 ^3/uL (0-1.3); Monocytes % (auto) 13.8 % (0.0-12.0); Neutrophils # (auto) 7.6 10 ^3/uL (1.6-8.6); Neutrophils % (auto) 77.4 % (37.0-80.0); Nucleated Red Blood Cells % 0.1 %; Red Blood Cells 3.12 10^6/uL (4.5-5.90); Red Cell Distribution Width 14.8 % (11.8-14.3); White Blood Cell 9.8 10^3/uL (4.4-10.8)
[2021-11-14 04:42] LABS: Calcium 7.2 mg/dL (8.5-10.1); Potassium 3.8 mmol/L (3.5-5.1)
[2021-11-14 04:44] LABS: BUN/Creatinine Ratio 20.7
[2021-11-14] MEDS: OCTREOTIDE ACETATE 100 MCG/ML VL SUBCUT SCH ×3 (05:50→22:00)
[2021-11-14] MEDS: InsuLIN REG 1unit/0.01ml Soln (100units/ml) SC SCH ×4 (05:51→22:00)
[2021-11-14] MEDS: ACCU-CHEK COMFORT CURVE STRIP VI SCH ×4 (05:51→23:13)
[2021-11-14] MEDS: hydrALAZINE HCL 20 MG/ML VL IV PRN ×2 (06:48→21:43)
[2021-11-14] MEDS: D5W/SOD CHLO 0.9% 1,000 ML IV SCH ×2 (06:48→16:59)
[2021-11-14] MEDS: PHENYLEPHRINE IV 250 ML IV SCH ×3 (08:47→16:25)
[2021-11-14] MEDS: NOREPINEPHRINE 8 MG/250ML KIT 250 ML IV SCH (08:47)
[2021-11-14] MEDS: PROPOFOL 100 ML IV SCH (10:15)
[2021-11-14] MEDS: PANTOPRAZOLE 40 MG/10 ML VIAL INJ IV SCH ×2 (10:27→23:16)
[2021-11-14] MEDS: THIAMINE 100mg/ml INJ (200mg/2ml VIAL) IV SCH (10:27)
[2021-11-14] MEDS: FOLIC ACID 1 MG in D5W 5% 50 ML INJ SCH (10:28)
[2021-11-14] MEDS: fentaNYL Drip 2500mCg/250mlNS 250 ML IV SCH (18:30)
[2021-11-14] MEDS: MIDAZOLAM DRIP 50 mg/50mL 50 ML IV SCH (18:30)
[2021-11-14] MEDS: MORPHINE SULFATE INJ 2 MG/ml SYRG IV PRN (19:45)
[2021-11-14] MEDS ORDERED: LORazepam 2MG/ML-1ML VIAL IV ONE (21:30)
[2021-11-14] MEDS: IPRATROPIUM BROM 0.5 MG/2.5ML INH SOL NEB SCH (21:31)
[2021-11-14] MEDS: ALBUTEROL SULF 2.5 MG/0.5ML(0.5%) NEB SOLN NEB SCH (21:31)
[2021-11-14] MEDS: MEROPENEM 1GM IVPB 100 ML IV SCH (23:17)
[2021-11-15] VITALS (69 sets, daily range): BP systolic 56–174; BP diastolic 23–131
[2021-11-15] MEDS: PHENYLEPHRINE IV 250 ML IV SCH ×3 (00:15→17:10)
[2021-11-15] MEDS: ALBUTEROL SULF 2.5 MG/0.5ML(0.5%) NEB SOLN NEB SCH ×6 (01:19→22:03)
[2021-11-15] MEDS: IPRATROPIUM BROM 0.5 MG/2.5ML INH SOL NEB SCH ×6 (01:19→22:03)
[2021-11-15] MEDS: LORazepam 2MG/ML-1ML VIAL IV PRN ×8 (02:56→21:20)
[2021-11-15] MEDS: D5W/SOD CHLO 0.9% 1,000 ML IV SCH ×2 (03:49→19:40)
[2021-11-15 04:38] LABS: Basophils # (auto) 0.1 10 ^3/uL (0-0.2); Eosinophils # (auto) 0 10 ^3/uL (0-0.8); Eosinophils % (auto) 0.3 % (0.0-7.0); Hematocrit 26.3 % (41.0-53.0); Hemoglobin 8.9 g/dL (13.5-17.5); Lymphocytes # (auto) 0.6 10 ^3/uL (0.4-5.4); Lymphocytes % (auto) 5.7 % (10.0-50.0); Mean Corpuscular Hemoglobin 30.7 pg (28.0-32.0); Mean Corpuscular Hgb Conc. 33.7 g/dL (32.0-36.0); Mean Corpuscular Volume 90.9 fL (80.0-100.0); Monocytes # (auto) 1.6 10 ^3/uL (0-1.3); Monocytes % (auto) 14.7 % (0.0-12.0); Neutrophils # (auto) 8.5 10 ^3/uL (1.6-8.6); Neutrophils % (auto) 78.3 % (37.0-80.0); Red Blood Cells 2.89 10^6/uL (4.5-5.90); Red Cell Distribution Width 14.5 % (11.8-14.3); White Blood Cell 10.8 10^3/uL (4.4-10.8)
[2021-11-15 04:59] LABS: BUN/Creatinine Ratio 12.2; Calcium 7.5 mg/dL (8.5-10.1); Potassium 3.4 mmol/L (3.5-5.1)
[2021-11-15] MEDS: MEROPENEM 1GM IVPB 100 ML IV SCH ×3 (05:40→22:30)
[2021-11-15] MEDS: InsuLIN REG 1unit/0.01ml Soln (100units/ml) SC SCH ×4 (06:29→22:00)
[2021-11-15] MEDS: NOREPINEPHRINE 8 MG/250ML KIT 250 ML IV SCH (06:30)
[2021-11-15] MEDS: ACCU-CHEK COMFORT CURVE STRIP VI SCH ×4 (06:30→22:00)
[2021-11-15] MEDS: OCTREOTIDE ACETATE 100 MCG/ML VL SUBCUT SCH ×3 (07:30→22:00)
[2021-11-15] MEDS: PANTOPRAZOLE 40 MG/10 ML VIAL INJ IV SCH ×2 (09:45→22:30)
[2021-11-15] MEDS: THIAMINE 100mg/ml INJ (200mg/2ml VIAL) IV SCH (09:45)
[2021-11-15] MEDS: FOLIC ACID 1 MG in D5W 5% 50 ML INJ SCH (09:46)
[2021-11-15] MEDS: PROPOFOL 100 ML IV SCH (10:09)
[2021-11-15] MEDS: hydrALAZINE HCL 20 MG/ML VL IV PRN ×2 (11:31→20:35)
[2021-11-15] MEDS: POTASSIUM CHL 20MEQ/100ML 100 ML IV SCH ×2 (13:10→14:51)
[2021-11-15] MEDS: DOXYCYCLINE 100MG/250ML 250 ML IV SCH (13:42)
[2021-11-15] MEDS: MIDAZOLAM DRIP 50 mg/50mL 50 ML IV SCH (18:30)
[2021-11-15] MEDS: fentaNYL Drip 2500mCg/250mlNS 250 ML IV SCH (18:30)
[2021-11-16] VITALS (87 sets, daily range): BP systolic 118–193; BP diastolic 30–92
[2021-11-16] MEDS: DOXYCYCLINE 100MG/250ML 250 ML IV SCH (01:15)
[2021-11-16] MEDS: PHENYLEPHRINE IV 250 ML IV SCH ×3 (01:45→18:16)
[2021-11-16] MEDS: IPRATROPIUM BROM 0.5 MG/2.5ML INH SOL NEB SCH ×6 (02:21→21:55)
[2021-11-16] MEDS: ALBUTEROL SULF 2.5 MG/0.5ML(0.5%) NEB SOLN NEB SCH ×6 (02:21→21:55)
[2021-11-16] MEDS: LORazepam 2MG/ML-1ML VIAL IV PRN ×6 (02:30→23:03)
[2021-11-16] MEDS ORDERED: FUROSEMIDE 40 MG/4 ML VIAL ONE (02:39)
[2021-11-16] MEDS ORDERED: methylPREDNISolone SOD SUCC 40 MG/ML VL ONE (02:40)
[2021-11-16] MEDS ORDERED: FUROSEMIDE 40 MG/4 ML VIAL IV ONE (03:00)
[2021-11-16] MEDS ORDERED: methylPREDNISolone SOD SUCC 40 MG/ML VL IV ONE (03:00)
[2021-11-16] MEDS: hydrALAZINE HCL 20 MG/ML VL IV PRN ×4 (03:30→23:02)
[2021-11-16 03:46] LABS: Basophils # (auto) 0.1 10 ^3/uL (0-0.2); Basophils % (auto) 1.2 % (0.0-2.0); Eosinophils # (auto) 0.1 10 ^3/uL (0-0.8); Hematocrit 25.6 % (41.0-53.0); Hemoglobin 8.7 g/dL (13.5-17.5); Lymphocytes # (auto) 0.9 10 ^3/uL (0.4-5.4); Lymphocytes % (auto) 8.9 % (10.0-50.0); Mean Corpuscular Hemoglobin 30.3 pg (28.0-32.0); Mean Corpuscular Hgb Conc. 33.9 g/dL (32.0-36.0); Mean Corpuscular Volume 89.5 fL (80.0-100.0); Monocytes # (auto) 1.2 10 ^3/uL (0-1.3); Monocytes % (auto) 11.8 % (0.0-12.0); Neutrophils # (auto) 7.7 10 ^3/uL (1.6-8.6); Neutrophils % (auto) 77.1 % (37.0-80.0); Nucleated Red Blood Cells % 0.1 %; Red Blood Cells 2.86 10^6/uL (4.5-5.90); Red Cell Distribution Width 15.2 % (11.8-14.3)
[2021-11-16 04:12] LABS: Albumin 1.9 g/dL (3.4-5.0); Calcium 7.7 mg/dL (8.5-10.1); Potassium 3.3 mmol/L (3.5-5.1)
[2021-11-16 04:15] LABS: BUN/Creatinine Ratio 9.8; Bilirubin, Total 0.9 mg/dL (0.2-1.0); Total Protein 5.5 g/dL (6.4-8.2)
[2021-11-16] MEDS: MEROPENEM 1GM IVPB 100 ML IV SCH (06:00)
[2021-11-16] MEDS: OCTREOTIDE ACETATE 100 MCG/ML VL SUBCUT SCH ×3 (06:00→22:00)
[2021-11-16] MEDS: NOREPINEPHRINE 8 MG/250ML KIT 250 ML IV SCH (06:30)
[2021-11-16] MEDS: ACCU-CHEK COMFORT CURVE STRIP VI SCH ×3 (06:49→17:25)
[2021-11-16] MEDS: InsuLIN REG 1unit/0.01ml Soln (100units/ml) SC SCH ×3 (07:00→17:29)
[2021-11-16] MEDS: D5W/SOD CHLO 0.9% 1,000 ML IV SCH ×2 (09:15→20:15)
[2021-11-16] MEDS: THIAMINE 100mg/ml INJ (200mg/2ml VIAL) IV SCH (09:37)
[2021-11-16] MEDS: PANTOPRAZOLE 40 MG/10 ML VIAL INJ IV SCH ×2 (09:37→21:39)
[2021-11-16] MEDS: FOLIC ACID 1 MG in D5W 5% 50 ML INJ SCH (09:43)
[2021-11-16] MEDS: POTASSIUM CHL 20MEQ/100ML 100 ML IV SCH ×2 (10:13→12:46)
[2021-11-16] MEDS: PROPOFOL 100 ML IV SCH (10:14)
[2021-11-16] MEDS ORDERED: TPN PER PHARMACY 0 ML IV SCH (13:30)
[2021-11-16] MEDS: ceFAZolin 2 GM in D5W 5% 100 ML IV SCH ×2 (14:19→21:38)
[2021-11-16 15:57] LABS: Magnesium 1.9 mg/dL (1.6-2.6); Phosphorus 2.6 mg/dL (2.5-4.90)
[2021-11-16] MEDS: MORPHINE SULFATE INJ 2 MG/ml SYRG IV PRN ×2 (15:58→22:30)
[2021-11-16] MEDS ORDERED: ACETAMINOPHEN 650 MG RECT SUPP PR PRN (19:30)
[2021-11-16] MEDS ORDERED: AMINO ACID INFUSION IN D10W 1,000 ML IV NR (20:00)
[2021-11-16] MEDS: MAGNESIUM SULFATE 1GM/100ML 100 ML IV SCH ×2 (20:00→21:13)
[2021-11-16] MEDS ORDERED: MAGNESIUM SULFATE 1GM/100ML 100 ML IV ONE (20:18)
[2021-11-17] VITALS (91 sets, daily range): BP systolic 137–185; BP diastolic 58–102
[2021-11-17] MEDS ORDERED: DEXTROSE (50%) 50ML SYRG IV SCH
[2021-11-17] MEDS: LORazepam 2MG/ML-1ML VIAL IV PRN ×6 (00:20→14:01)
[2021-11-17] MEDS: ACCU-CHEK COMFORT CURVE STRIP VI SCH ×4 (00:26→18:27)
[2021-11-17] MEDS: InsuLIN REG 1unit/0.01ml Soln (100units/ml) SC SCH ×4 (00:27→18:37)
[2021-11-17] MEDS: IPRATROPIUM BROM 0.5 MG/2.5ML INH SOL NEB SCH ×6 (02:31→22:32)
[2021-11-17] MEDS: ALBUTEROL SULF 2.5 MG/0.5ML(0.5%) NEB SOLN NEB SCH ×6 (02:31→22:32)
[2021-11-17 03:50] LABS: Basophils # (auto) 0.1 10 ^3/uL (0-0.2); Hematocrit 23.9 % (41.0-53.0); Lymphocytes # (auto) 1.1 10 ^3/uL (0.4-5.4)
[2021-11-17 03:52] LABS: Basophils % (auto) 0.8 % (0.0-2.0); Eosinophils # (auto) 0.1 10 ^3/uL (0-0.8); Eosinophils % (auto) 0.5 % (0.0-7.0); Hemoglobin 7.9 g/dL (13.5-17.5); Lymphocytes % (auto) 8.6 % (10.0-50.0); Mean Corpuscular Hemoglobin 29.9 pg (28.0-32.0); Mean Corpuscular Hgb Conc. 32.9 g/dL (32.0-36.0); Mean Corpuscular Volume 90.9 fL (80.0-100.0); Monocytes # (auto) 0.9 10 ^3/uL (0-1.3); Neutrophils # (auto) 10.7 10 ^3/uL (1.6-8.6); Neutrophils % (auto) 83.1 % (37.0-80.0); Red Blood Cells 2.63 10^6/uL (4.5-5.90); Red Cell Distribution Width 15.1 % (11.8-14.3); White Blood Cell 12.9 10^3/uL (4.4-10.8)
[2021-11-17 04:04] LABS: Albumin 1.9 g/dL (3.4-5.0); Calcium 7.9 mg/dL (8.5-10.1); Potassium 3.4 mmol/L (3.5-5.1)
[2021-11-17 04:08] LABS: BUN/Creatinine Ratio 14.8; Magnesium 2.1 mg/dL (1.6-2.6)
[2021-11-17 04:10] LABS: Bilirubin, Total 0.5 mg/dL (0.2-1.0); Phosphorus 1.8 mg/dL (2.5-4.90); Total Protein 5.5 g/dL (6.4-8.2)
[2021-11-17] MEDS: OCTREOTIDE ACETATE 100 MCG/ML VL SUBCUT SCH ×3 (06:00→22:00)
[2021-11-17] MEDS: hydrALAZINE HCL 20 MG/ML VL IV PRN ×4 (06:40→23:27)
[2021-11-17] MEDS: ceFAZolin 2 GM in D5W 5% 100 ML IV SCH ×3 (07:02→23:25)
[2021-11-17] MEDS: NOREPINEPHRINE 8 MG/250ML KIT 250 ML IV SCH (08:00)
[2021-11-17] MEDS: PHENYLEPHRINE IV 250 ML IV SCH ×3 (08:00→19:23)
[2021-11-17] MEDS ORDERED: POTASSIUM PHOSPHATE 44 MEQ in D5W 5% 250 ML IV ONE (09:45)
[2021-11-17] MEDS: THIAMINE 100mg/ml INJ (200mg/2ml VIAL) IV SCH (09:56)
[2021-11-17] MEDS: PANTOPRAZOLE 40 MG/10 ML VIAL INJ IV SCH ×2 (09:56→23:58)
[2021-11-17] MEDS: FOLIC ACID 1 MG in D5W 5% 50 ML INJ SCH (10:08)
[2021-11-17] MEDS ORDERED: FUROSEMIDE 40 MG/4 ML VIAL IV ONE (11:30)
[2021-11-17] MEDS: FUROSEMIDE 40 MG/4 ML VIAL IV SCH (18:27)
[2021-11-17] MEDS ORDERED: TPN PER PHARMACY IV NR ×9 (20:00)
[2021-11-17] MEDS ORDERED: POTASSIUM EFFERVESENT TAB 25 MEQ PO ONE (23:30)
[2021-11-17] MEDS: HYDROcodone-ACET 5/325MG TAB PO PRN (23:51)
[2021-11-17] MEDS: chlordiazePOXIDE HCL 25 MG CAP PO PRN (23:59)
[2021-11-18] VITALS (29 sets, daily range): BP systolic 132–188; BP diastolic 53–91
[2021-11-18] MEDS: ACCU-CHEK COMFORT CURVE STRIP VI SCH ×5 (00:17→23:09)
[2021-11-18] MEDS: LORazepam 2MG/ML-1ML VIAL IV PRN (00:19)
[2021-11-18 04:35] LABS: Eosinophils # (auto) 0.4 10 ^3/uL (0-0.8); Eosinophils % (auto) 4.5 % (0.0-7.0); Hemoglobin 7.8 g/dL (13.5-17.5); Monocytes # (auto) 0.6 10 ^3/uL (0-1.3)
[2021-11-18 04:40] LABS: Basophils # (auto) 0.2 10 ^3/uL (0-0.2); Basophils % (auto) 1.7 % (0.0-2.0); Hematocrit 23.4 % (41.0-53.0); Mean Corpuscular Hemoglobin 30.3 pg (28.0-32.0); Mean Corpuscular Hgb Conc. 33.4 g/dL (32.0-36.0); Mean Corpuscular Volume 90.7 fL (80.0-100.0); Monocytes % (auto) 6.6 % (0.0-12.0); Neutrophils # (auto) 7.4 10 ^3/uL (1.6-8.6); Neutrophils % (auto) 77.2 % (37.0-80.0); Red Blood Cells 2.58 10^6/uL (4.5-5.90); Red Cell Distribution Width 14.9 % (11.8-14.3); White Blood Cell 9.6 10^3/uL (4.4-10.8)
[2021-11-18 04:58] LABS: Potassium 4.1 mmol/L (3.5-5.1)
[2021-11-18 05:06] LABS: Albumin 1.8 g/dL (3.4-5.0); BUN/Creatinine Ratio 15.8; Bilirubin, Total 0.4 mg/dL (0.2-1.0); Calcium 7.6 mg/dL (8.5-10.1); Magnesium 1.6 mg/dL (1.6-2.6); Phosphorus 3.4 mg/dL (2.5-4.90); Total Protein 4.9 g/dL (6.4-8.2)
[2021-11-18] MEDS: InsuLIN REG 1unit/0.01ml Soln (100units/ml) SC SCH ×5 (05:50→23:10)
[2021-11-18] MEDS: ceFAZolin 2 GM in D5W 5% 100 ML IV SCH ×3 (05:54→22:42)
[2021-11-18] MEDS: FUROSEMIDE 40 MG/4 ML VIAL IV SCH ×2 (05:56→17:33)
[2021-11-18] MEDS: OCTREOTIDE ACETATE 100 MCG/ML VL SUBCUT SCH ×3 (05:58→21:35)
[2021-11-18] MEDS: IPRATROPIUM BROM 0.5 MG/2.5ML INH SOL NEB SCH ×5 (06:43→22:19)
[2021-11-18] MEDS: ALBUTEROL SULF 2.5 MG/0.5ML(0.5%) NEB SOLN NEB SCH ×5 (06:44→22:19)
[2021-11-18] MEDS: PHENYLEPHRINE IV 250 ML IV SCH ×3 (07:42→20:25)
[2021-11-18] MEDS: NOREPINEPHRINE 8 MG/250ML KIT 250 ML IV SCH (07:42)
[2021-11-18] MEDS: chlordiazePOXIDE HCL 25 MG CAP PO PRN ×3 (07:44→23:15)
[2021-11-18] MEDS: hydrALAZINE HCL 20 MG/ML VL IV PRN ×2 (08:22→15:04)
[2021-11-18] MEDS: PANTOPRAZOLE 40 MG/10 ML VIAL INJ IV SCH ×2 (09:31→22:42)
[2021-11-18] MEDS: METOPROLOL TARTRATE 25 MG TAB PO SCH ×2 (09:31→22:43)
[2021-11-18] MEDS: THIAMINE 100mg/ml INJ (200mg/2ml VIAL) IV SCH (09:31)
[2021-11-18] MEDS: FOLIC ACID 1 MG in D5W 5% 50 ML INJ SCH (10:11)
[2021-11-18] MEDS: MAGNESIUM SULFATE 1GM/100ML 100 ML IV SCH ×3 (17:32→20:06)
[2021-11-19] VITALS: BP 132/53
[2021-11-19 01:00] VITALS: BP 132/62
[2021-11-19] MEDS: HYDROcodone-ACET 5/325MG TAB PO PRN (01:33)
[2021-11-19] MEDS: IPRATROPIUM BROM 0.5 MG/2.5ML INH SOL NEB SCH ×6 (02:11→22:12)
[2021-11-19] MEDS: ALBUTEROL SULF 2.5 MG/0.5ML(0.5%) NEB SOLN NEB SCH ×6 (02:11→22:12)
[2021-11-19] MEDS: OCTREOTIDE ACETATE 100 MCG/ML VL SUBCUT SCH ×3 (04:04→23:13)
[2021-11-19] MEDS: ACCU-CHEK COMFORT CURVE STRIP VI SCH ×4 (04:05→23:47)
[2021-11-19] MEDS: FUROSEMIDE 40 MG/4 ML VIAL IV SCH ×2 (04:25→17:47)
[2021-11-19] MEDS: ceFAZolin 2 GM in D5W 5% 100 ML IV SCH ×3 (04:25→23:14)
[2021-11-19 04:28] LABS: Basophils # (auto) 0.2 10 ^3/uL (0-0.2); Basophils % (auto) 2.4 % (0.0-2.0); Eosinophils # (auto) 0.5 10 ^3/uL (0-0.8); Eosinophils % (auto) 4.9 % (0.0-7.0); Hematocrit 23.1 % (41.0-53.0); Hemoglobin 7.8 g/dL (13.5-17.5); Lymphocytes # (auto) 1.1 10 ^3/uL (0.4-5.4); Lymphocytes % (auto) 11.1 % (10.0-50.0); Mean Corpuscular Hemoglobin 30.4 pg (28.0-32.0); Mean Corpuscular Hgb Conc. 33.6 g/dL (32.0-36.0); Mean Corpuscular Volume 90.6 fL (80.0-100.0); Monocytes # (auto) 0.7 10 ^3/uL (0-1.3); Monocytes % (auto) 6.7 % (0.0-12.0); Neutrophils # (auto) 7.5 10 ^3/uL (1.6-8.6); Neutrophils % (auto) 74.9 % (37.0-80.0); Red Blood Cells 2.55 10^6/uL (4.5-5.90); Red Cell Distribution Width 15.2 % (11.8-14.3)
[2021-11-19 05:00] VITALS: BP 132/56
[2021-11-19] MEDS: InsuLIN REG 1unit/0.01ml Soln (100units/ml) SC SCH ×4 (05:25→23:47)
[2021-11-19 07:43] LABS: Potassium 3.6 mmol/L (3.5-5.1)
[2021-11-19 07:57] LABS: BUN/Creatinine Ratio 12.8; Calcium 7.8 mg/dL (8.5-10.1); Magnesium 2.1 mg/dL (1.6-2.6); Phosphorus 2.6 mg/dL (2.5-4.90)
[2021-11-19] MEDS ORDERED: LORazepam 2MG/ML-1ML VIAL IV PRN (08:45)
[2021-11-19] MEDS: PANTOPRAZOLE 40 MG/10 ML VIAL INJ IV SCH ×2 (10:11→23:13)
[2021-11-19] MEDS: THIAMINE 100mg/ml INJ (200mg/2ml VIAL) IV SCH (10:11)
[2021-11-19] MEDS: METOPROLOL TARTRATE 25 MG TAB PO SCH ×2 (10:14→23:13)
[2021-11-19] MEDS: FOLIC ACID 1 MG in D5W 5% 50 ML INJ SCH (13:36)
[2021-11-19] MEDS: chlordiazePOXIDE HCL 25 MG CAP PO PRN (23:14)
[2021-11-20 02:10] VITALS: BP 142/69
[2021-11-20] MEDS: ALBUTEROL SULF 2.5 MG/0.5ML(0.5%) NEB SOLN NEB SCH ×6 (02:14→22:00)
[2021-11-20] MEDS: IPRATROPIUM BROM 0.5 MG/2.5ML INH SOL NEB SCH ×6 (02:14→22:00)
[2021-11-20 05:09] VITALS: BP 149/69
[2021-11-20] MEDS: ceFAZolin 2 GM in D5W 5% 100 ML IV SCH ×3 (05:44→22:00)
[2021-11-20] MEDS: OCTREOTIDE ACETATE 100 MCG/ML VL SUBCUT SCH ×3 (05:44→22:00)
[2021-11-20] MEDS: FUROSEMIDE 40 MG/4 ML VIAL IV SCH ×2 (05:44→18:00)
[2021-11-20] MEDS: InsuLIN REG 1unit/0.01ml Soln (100units/ml) SC SCH ×3 (05:52→18:00)
[2021-11-20] MEDS: ACCU-CHEK COMFORT CURVE STRIP VI SCH ×3 (05:52→18:00)
[2021-11-20] MEDS: PANTOPRAZOLE 40 MG/10 ML VIAL INJ IV SCH ×2 (10:25→22:24)
[2021-11-20] MEDS: THIAMINE 100mg/ml INJ (200mg/2ml VIAL) IV SCH (10:25)
[2021-11-20] MEDS: FOLIC ACID 1 MG in D5W 5% 50 ML INJ SCH (10:25)
[2021-11-20] MEDS: METOPROLOL TARTRATE 25 MG TAB PO SCH ×2 (10:26→22:25)
[2021-11-20] MEDS ORDERED: LEVO500T31 PO (14:36)
[2021-11-20] MEDS ORDERED: THIA100T5 PO (14:36)
[2021-11-20] MEDS ORDERED: FOLI1TAB6 PO (14:36)
[2021-11-20] MEDS ORDERED: MET25T PO (14:36)
[2021-11-20] MEDS ORDERED: PANT40TA2 PO (16:15)
[2021-11-20 17:44] VITALS: BP 130/67
[2021-11-20] MEDS: hydrALAZINE HCL 20 MG/ML VL IV PRN (20:06)
[2021-11-20 22:19] VITALS: BP 159/79
[2021-11-20 23:05] VITALS: BP 159/79
[2021-11-21] MEDS: IPRATROPIUM BROM 0.5 MG/2.5ML INH SOL NEB SCH ×4 (02:00→09:56)
[2021-11-21] MEDS: ALBUTEROL SULF 2.5 MG/0.5ML(0.5%) NEB SOLN NEB SCH ×4 (02:00→09:56)
[2021-11-21 05:37] VITALS: BP 158/71
[2021-11-21] MEDS: OCTREOTIDE ACETATE 100 MCG/ML VL SUBCUT SCH (06:00)
[2021-11-21] MEDS: ACCU-CHEK COMFORT CURVE STRIP VI SCH ×2 (06:02)
[2021-11-21] MEDS: FUROSEMIDE 40 MG/4 ML VIAL IV SCH (06:03)
[2021-11-21] MEDS: InsuLIN REG 1unit/0.01ml Soln (100units/ml) SC SCH ×2 (06:09)
[2021-11-21] MEDS: ceFAZolin 2 GM in D5W 5% 100 ML IV SCH (06:32)
== END 2021-11-21 08:43 | disposition home health service (06) | DRG 253 ==
LOC: ER 00:11 → EDBD 00:11 → EDUNIT# 00:11 → TELE 05:44 → ICU WEST 08:47 → DOU IN ICU 11-19 03:32 → TELE-EAST 11-19 20:11
PROVIDERS: ADMIT Nurse Practitioner Family; ATTEND Internal Medicine
PROC: 5A1955Z Respiratory Ventilation, Greater than 96 Consecutive Hours (ICD-10-PCS; principal; 2021-11-08)
PROC: 0BH17EZ Insertion of Endotracheal Airway into Trachea, Via Natural or Artificial Opening (ICD-10-PCS; 2021-11-08)
PROC: 30233N1 Transfusion of Nonautologous Red Blood Cells into Peripheral Vein, Percutaneous Approach (ICD-10-PCS; 2021-11-08)
PROC: 30233R1 Transfusion of Nonautologous Platelets into Peripheral Vein, Percutaneous Approach (ICD-10-PCS; 2021-11-08)
PROC: 30233K1 Transfusion of Nonautologous Frozen Plasma into Peripheral Vein, Percutaneous Approach (ICD-10-PCS; 2021-11-08)
PROC: 0DJ08ZZ Inspection of Upper Intestinal Tract, Via Natural or Artificial Opening Endoscopic (ICD-10-PCS; 2021-11-10)
PROC: 0DBH8ZZ Excision of Cecum, Via Natural or Artificial Opening Endoscopic (ICD-10-PCS; 2021-11-10)
PROC: 0BD18ZX Extraction of Trachea, Via Natural or Artificial Opening Endoscopic, Diagnostic (ICD-10-PCS; 2021-11-12)
PROC: 05HC33Z Insertion of Infusion Device into Left Basilic Vein, Percutaneous Approach (ICD-10-PCS; 2021-11-18)
PROC: B54NZZA Ultrasonography of Left Upper Extremity Veins, Guidance (ICD-10-PCS; 2021-11-18)
DX: K62.5 Hemorrhage of anus and rectum (principal); J96.01 Acute respiratory failure with hypoxia; N17.0 Acute kidney failure with tubular necrosis; G93.41 Metabolic encephalopathy; J15.0 Pneumonia due to Klebsiella pneumoniae; R57.8 Other shock; R57.1 Hypovolemic shock; J15.20 Pneumonia due to staphylococcus, unspecified; D69.6 Thrombocytopenia, unspecified; D62 Acute posthemorrhagic anemia; K25.9 Gastric ulcer, unspecified as acute or chronic, without hemorrhage or perforation; K63.5 Polyp of colon; E11.22 Type 2 diabetes mellitus with diabetic chronic kidney disease; N18.9 Chronic kidney disease, unspecified; I12.9 Hypertensive chronic kidney disease with stage 1 through stage 4 chronic kidney disease, or unspecified chronic kidney disease; E66.9 Obesity, unspecified; E86.1 Hypovolemia; R56.9 Unspecified convulsions; K70.30 Alcoholic cirrhosis of liver without ascites; E83.51 Hypocalcemia; Z20.822 Contact with and (suspected) exposure to COVID-19; E88.09 Other disorders of plasma-protein metabolism, not elsewhere classified; E87.5 Hyperkalemia; F10.239 Alcohol dependence with withdrawal, unspecified; M54.9 Dorsalgia, unspecified; K64.8 Other hemorrhoids; Z68.36 Body mass index [BMI] 36.0-36.9, adult; Z79.4 Long term (current) use of insulin; Z82.3 Family history of stroke; Z98.84 Bariatric surgery status; Z79.899 Other long term (current) drug therapy
CPT/HCPCS: 31622; 36415; 36430; 36600; 43235; 45379; 70450; 71045; 72128; 72131; 74176; 76775; 80048; 80053; 81001; 82140; 82306; 82570; 82805; 82962; 83036; 83735; 83970; 84100; 84132; 84156; 84300; 84478; 85007; 85014; 85018; 85025; 85027; 85610; 85730; 86803; 86850; 86900; 86901; 86920; 87040; 87070; 87077; 87081; 87186; 87205; 87340; 92610; 93306; 94002; 94003; 94640; 95819; 96365; 96375; 97110; 97116; 97163; 97530; 99291; C9113; G0378; J0171; J0330; J0690; J1815; J2185; J2250; J2405; J2704; J3480; J3490; J7042; J7060; P9047

== ENCOUNTER 2022-06-03 03:32 | Inpatient (IN) | payer MEDICAID ==
[~2022-06-03] VITALS: Ht 167.6 cm; Wt 90.9 kg
[~2022-06-03 03:32] MED LIST changes: +FOLI1TAB6 PO; +LEVO500T31 PO; +PANT40TA2 PO; +THIA100T5 PO
[2022-06-03] MEDS ORDERED: IPRATROPIUM BROM 0.5 MG/2.5ML INH SOL NEB ONE ×2 (04:00→07:30)
[2022-06-03] MEDS ORDERED: ALBUTEROL SULF 2.5 MG/0.5ML(0.5%) NEB SOLN NEB ONE ×2 (04:00→07:30)
[2022-06-03] MEDS ORDERED: DexAMETHasone SOD PHOS 10MG/1ML VIAL INJ IV ONE (05:15)
[2022-06-03] MEDS ORDERED: ONDANSETRON HCL 4 MG/2 ML VIAL IV ONE (05:30)
[2022-06-03] MEDS ORDERED: MORPHINE SULFATE 4 MG/ML SYR/VIAL IV ONE (05:30)
[2022-06-03 05:57] LABS: Basophils # (auto) 0.1 10 ^3/uL (0-0.2); Basophils % (auto) 0.8 % (0.0-2.0); Eosinophils # (auto) 0.5 10 ^3/uL (0-0.8); Eosinophils % (auto) 5.4 % (0.0-7.0); Hematocrit 39.2 % (41.0-53.0); Hemoglobin 13.4 g/dL (13.5-17.5); Lymphocytes # (auto) 1.5 10 ^3/uL (0.4-5.4); Mean Corpuscular Hemoglobin 29.7 pg (28.0-32.0); Mean Corpuscular Hgb Conc. 34.1 g/dL (32.0-36.0); Monocytes # (auto) 0.9 10 ^3/uL (0-1.3); Neutrophils # (auto) 6.6 10 ^3/uL (1.6-8.6); Neutrophils % (auto) 68.8 % (37.0-80.0); Nucleated Red Blood Cells % 0.2 %; Red Cell Distribution Width 13.8 % (11.8-14.3); White Blood Cell 9.6 10^3/uL (4.4-10.8)
[2022-06-03 06:14] LABS: Albumin 2.9 g/dL (3.4-5.0); Calcium 8.8 mg/dL (8.5-10.1)
[2022-06-03 06:18] LABS: BUN/Creatinine Ratio 14.6 (10.0-20.0); Bilirubin, Total 0.4 mg/dL (0.2-1.0)
[2022-06-03] MEDS ORDERED: IPRATROPIUM BROM 0.5 MG/2.5ML INH SOL ONE (07:37)
[2022-06-03] MEDS ORDERED: ALBUTEROL SULF 2.5 MG/0.5ML(0.5%) NEB SOLN ONE (07:37)
[2022-06-03] MEDS ORDERED: ASPirin 325 MG TAB PO ONE (07:45)
[2022-06-03] MEDS: MAGNESIUM SULFATE 1GM/100ML 100 ML IV SCH ×2 (08:45→09:30)
[2022-06-03] MEDS ORDERED: NITROGLYCERIN 0.4 MG SL TAB SL PRN (13:15)
[2022-06-03] MEDS ORDERED: MORPHINE SULFATE INJ 2 MG/ml SYRG IV PRN (13:15)
[2022-06-03] MEDS: IPRATROPIUM BROM 0.5 MG/2.5ML INH SOL NEB SCH ×2 (13:54→18:43)
[2022-06-03] MEDS: ALBUTEROL SULF 2.5 MG/0.5ML(0.5%) NEB SOLN NEB SCH ×2 (13:54→18:43)
[2022-06-03] MEDS: DOXYCYCLINE 100MG/250ML 250 ML IV SCH (14:47)
[2022-06-03] MEDS: FUROSEMIDE 40 MG/4 ML VIAL IV SCH (18:36)
[2022-06-03] MEDS: methylPREDNISolone SOD SUCC 40 MG/ML VL IV SCH ×2 (18:36→23:08)
[2022-06-03] MEDS: BUDESONIDE (INHALATION) 0.5 MG/2 ML NEB NEB SCH (18:43)
[2022-06-03 18:54] VITALS: BP 164/79
[2022-06-03] MEDS ORDERED: ALBUAER3 IN (19:56)
[2022-06-03] MEDS: GABAPENTIN 300 MG CAP PO SCH (21:24)
[2022-06-03] MEDS: METOPROLOL TARTRATE 25 MG TAB PO SCH (21:31)
[2022-06-03 22:00] VITALS: BP 151/79
[2022-06-03] MEDS ORDERED: MONTELUKAST SODIUM 10 MG TAB PO SCH (22:00)
[2022-06-03] MEDS: MORPHINE SULFATE INJ 2 MG/ml SYRG IV PRN (23:02)
[2022-06-04] MEDS: DOXYCYCLINE 100MG/250ML 250 ML IV SCH ×2 (01:17→12:08)
[2022-06-04] MEDS: IPRATROPIUM BROM 0.5 MG/2.5ML INH SOL NEB SCH ×6 (02:25→14:36)
[2022-06-04] MEDS: ALBUTEROL SULF 2.5 MG/0.5ML(0.5%) NEB SOLN NEB SCH ×6 (02:25→14:36)
[2022-06-04 04:58] VITALS: BP 149/94
[2022-06-04] MEDS: methylPREDNISolone SOD SUCC 40 MG/ML VL IV SCH ×2 (05:01→12:08)
[2022-06-04] MEDS: FUROSEMIDE 40 MG/4 ML VIAL IV SCH (05:01)
[2022-06-04] MEDS: GABAPENTIN 300 MG CAP PO SCH ×2 (05:02→14:31)
[2022-06-04] MEDS: BUDESONIDE (INHALATION) 0.5 MG/2 ML NEB NEB SCH (06:15)
[2022-06-04 06:45] LABS: Calcium 8.9 mg/dL (8.5-10.1); Potassium 4.3 mmol/L (3.5-5.1)
[2022-06-04 06:48] LABS: BUN/Creatinine Ratio 18.4 (10.0-20.0)
[2022-06-04 09:00] VITALS: BP 150/83
[2022-06-04] MEDS: METOPROLOL TARTRATE 25 MG TAB PO SCH (09:05)
[2022-06-04] MEDS: MORPHINE SULFATE INJ 2 MG/ml SYRG IV PRN (09:06)
[2022-06-04 09:36] VITALS: BP 150/83
[2022-06-04] MEDS ORDERED: PANTOPRAZOLE 40 MG TAB PO SCH (10:00)
[2022-06-04] MEDS ORDERED: MULTIPLE VITAMINS W/ MINERALS TAB PO SCH (10:00)
[2022-06-04] MEDS ORDERED: THIAMINE HCL 100 MG TAB PO SCH (10:00)
[2022-06-04] MEDS ORDERED: ENOXAPARIN SOD 40 MG/0.4 ML SYRINGE SC SCH (10:00)
[2022-06-04] MEDS ORDERED: POTASSIUM CHL 10 Meq TABLET PO SCH (10:00)
[2022-06-04] MEDS ORDERED: LISINOPRIL 5 MG TAB PO SCH (10:00)
[2022-06-04] MEDS ORDERED: AZIT250T8 PO (12:50)
[2022-06-04] MEDS ORDERED: ALBUAER3 IN (12:50)
[2022-06-04] MEDS ORDERED: IPRA0.00 IN (12:50)
[2022-06-04 14:06] LABS: Alcohol, Urine < 3.0 mg/dL (0-10); Amphetamine Screen, Urine NEGATIVE (NEGATIVE); Barbiturate Scree,Urine NEGATIVE (NEGATIVE); Benzodiazephine Screen, Urine NEGATIVE (NEGATIVE); Cannabinoid Screen, Urine NEGATIVE (NEGATIVE); Cocaine Screen, Urine NEGATIVE (NEGATIVE); Opiate Scree,Urine NEGATIVE (NEGATIVE); Phencyclidine Screen, Urine NEGATIVE (NEGATIVE)
[2022-06-04] MEDS ORDERED: amLODIPine BESYLATE 5 MG TAB PO SCH (15:23)
== END 2022-06-04 16:25 | disposition home or self-care (01) | DRG 133 ==
LOC: ER 03:32 → TELE 13:14 → TELE-WESTW 18:57
PROVIDERS: ADMIT Hospitalist; ATTEND Hospitalist
DX: J96.00 Acute respiratory failure, unspecified whether with hypoxia or hypercapnia (principal); D69.6 Thrombocytopenia, unspecified; J45.901 Unspecified asthma with (acute) exacerbation; E11.65 Type 2 diabetes mellitus with hyperglycemia; F10.10 Alcohol abuse, uncomplicated; I10 Essential (primary) hypertension; J20.9 Acute bronchitis, unspecified; Z82.49 Family history of ischemic heart disease and other diseases of the circulatory system; Z87.11 Personal history of peptic ulcer disease
CPT/HCPCS: 36415; 71045; 78582; 80048; 80053; 80307; 83880; 84484; 85025; 85379; 93005; 93306; 94640; 96365; 96375; 99291; G0378; J1100; J2405; J3490

== ENCOUNTER 2023-02-12 12:18 | Emergency (ER) | payer MEDICAID ==
[~2023-02-12] VITALS: Ht 167.6 cm; Wt 90.4 kg
[~2023-02-12 12:18] MED LIST changes: +ALBUAER3 IN; +AZIT-81 PO; -FOLI1TAB6 PO; +IPRA0.00 IN; -LEVO500T31 PO; -METF1000
[2023-02-12] MEDS ORDERED: DICYCLOMINE HCL (10MG/ML) 2 ML AMPULE IM ONE (14:30)
[2023-02-12] MEDS ORDERED: ONDANSETRON ODT 4 MG TAB PO ONE (14:30)
[2023-02-12 14:59] LABS: Basophils # (auto) 0.1 10 ^3/uL (0-0.2); Basophils % (auto) 0.8 % (0.0-2.0); Eosinophils # (auto) 0.2 10 ^3/uL (0-0.8); Eosinophils % (auto) 2.2 % (0.0-7.0); Hematocrit 42.3 % (41.0-53.0); Lymphocytes # (auto) 0.7 10 ^3/uL (0.4-5.4); Lymphocytes % (auto) 8.7 % (10.0-50.0); Mean Corpuscular Hemoglobin 30.6 pg (28.0-32.0); Mean Corpuscular Volume 92.8 fL (80.0-100.0); Monocytes # (auto) 0.8 10 ^3/uL (0-1.3); Monocytes % (auto) 9.7 % (0.0-12.0); Neutrophils # (auto) 6.6 10 ^3/uL (1.6-8.6); Neutrophils % (auto) 78.6 % (37.0-80.0); Red Blood Cells 4.56 10^6/uL (4.5-5.90); White Blood Cell 8.4 10^3/uL (4.4-10.8)
[2023-02-12 15:11] LABS: INR 1.06 (0.9-1.15); Prothrombin Time 11.1 sec (9.3-11.8)
[2023-02-12 15:14] LABS: Alanine Aminotransferase 27 U/L (7-40); Albumin 3.9 g/dL (3.2-4.8); Alkaline Phosphatase 186 U/L (46-116); Anion Gap 7 (5-15); Aspartate Aminotransferase 38 U/L (13-40); Blood Urea Nitrogen 20 mg/dL (9-23); Calcium 8.8 mg/dL (8.7-10.4); Carbon Dioxide 26 mmol/L (20-30); Chloride 99 mmol/L (98-107); Glucose 326 mg/dL (74-106); Lipase 28 U/L (12-53); Magnesium 1.9 mg/dL (1.6-2.6); Potassium 4.9 mmol/L (3.5-5.1); Sodium 132 mmol/L (136-145)
[2023-02-12 15:15] LABS: Bilirubin, Total 0.9 mg/dL (0.2-1.0); Total Protein 6.9 g/dL (5.7-8.2)
[2023-02-12] MEDS ORDERED: PIPERACILLIN-TAZO 4.5GM 100 ML IV ONE (17:30)
[2023-02-12 21:30] VITALS: PULSE 94; RESP 20; O2SAT 97
[2023-02-12] MEDS ORDERED: MORPHINE SULFATE 4 MG/ML SYR/VIAL IV ONE (21:30)
[2023-02-12] MEDS ORDERED: ONDANSETRON HCL 4 MG/2 ML VIAL IV ONE (21:45)
[2023-02-12 22:22] VITALS: TEMP 98.5; O2SAT 96
[2023-02-12 22:23] VITALS: BP 90/54; PULSE 90; RESP 20
== END 2023-02-12 22:55 | disposition short-term general hospital (02) ==
LOC: ER 12:18
DX: K35.80 Unspecified acute appendicitis (principal); K81.9 Cholecystitis, unspecified; K74.60 Unspecified cirrhosis of liver; R10.11 Right upper quadrant pain; I10 Essential (primary) hypertension; E11.9 Type 2 diabetes mellitus without complications; J45.909 Unspecified asthma, uncomplicated; F10.90 Alcohol use, unspecified, uncomplicated; Z98.890 Other specified postprocedural states; Z79.899 Other long term (current) drug therapy; Y90.0 Blood alcohol level of less than 20 mg/100 ml
CPT/HCPCS: 36415; 74176; 76705; 80053; 83690; 83735; 84484; 85025; 85610; 96365; 96366; 96372; 96375; 99291; J0500; J2270; J2405; J2543; Q0162

== ENCOUNTER 2023-10-22 03:02 | Emergency (ER) | payer MEDICAID ==
[~2023-10-22] VITALS: Ht 165.1 cm; Wt 95.5 kg
[~2023-10-22 03:02] MED LIST changes: +AZIT-185 PO; -AZIT-81 PO
[2023-10-22 03:13] VITALS: BP 140/86; RESP 22; O2SAT 98
[2023-10-22 03:16] VITALS: PULSE 106
== END 2023-10-22 03:59 | disposition left against medical advice (07) ==
LOC: ER 03:02
DX: R06.02 Shortness of breath (principal); R05.9 Cough, unspecified; R10.9 Unspecified abdominal pain; Z53.21 Procedure and treatment not carried out due to patient leaving prior to being seen by health care provider
CPT/HCPCS: 93005

== ENCOUNTER 2024-03-24 04:56 | Emergency (ER) | payer MEDICAID ==
[~2024-03-24] VITALS: Ht 165.1 cm; Wt 93.1 kg
[2024-03-24] MEDS: KETOROLAC TROMETH 60MG/2ML VIAL IM ONE (05:47)
[2024-03-24] MEDS: MORPHINE SULFATE INJ 2 MG/ml SYRG IM ONE (05:49)
[2024-03-24 06:52] VITALS: TEMP 98.4; O2SAT 98
[2024-03-24 06:58] LABS: Urine Bacteria None Seen /hpf (None Seen)
[2024-03-24 07:22] LABS: Urine Blood TRACE /uL (Negative); Urine Clarity Clear (Clear); Urine Color Light-Yellow (Yellow); Urine Protein, UAD 3+ (Negative); Urine Specific Gravity 1.015 (1.001-1.035); Urine Squamous Epithelial Cell None Seen /hpf (<5); Urine Urobilinogen Normal (Negative); Urine WBC 31 /HPF (0-3)
[2024-03-24] MEDS: LIDOCAINE 1% HCL (LOCAL ANESTH.) INJ 20ML MDV ID ONE (07:29)
[2024-03-24] MEDS: cefTRIAXone SOD 1,000 MG VL IM ONE (07:29)
--- NOTE | 2024-03-24 07:33 | ED.PDOC ---
General HPI Comments A 53 YEAR OLD MALE PRESENTS TO THE ED WITH COMPLAINT OF PENILE SWELLING AND PAIN. PATIENT STATES HE WAS HAVING SEXUAL INTERCOURSE WITH HIS YESTERDAY NIGHT AND HE BEGAN TO EXPERIENCE PAIN AND SWELLING IN HIS PENIS. PATIENT REPORTS THE FORESKIN OF HIS PENIS IS STUCK BEHIND THE HEAD OF HIS PENIS AND HE HAS BEEN UNABLE TO REDUCE IT. PATIENT ALSO NOTES HE HAS NOT TAKEN HIS DIABETES MEDICATION FOR THE LAST FEW DAYS. PATIENT DENIES DYSURIA, HEMATURIA, PENILE DISCHARGE, FEVER, CHILLS, SHORTNESS OF BREATH, CHEST PAIN, ABDOMINAL PAIN, NAUSEA, VOMITING, HEADACHE, OR OTHER COMPLAINTS. NO OTHER SYMPTOMS OR MODIFYING FACTORS AT THIS TIME. PATIENT IS ALERT, ORIENTED X 4, AND HAS STEADY GAIT. Chief Complaint: Penile Problem Time Seen by MD: 06:24 Primary Care Provider: NONE Reviewed notes: Nurses Notes, Medications, Allergies Allergies: Coded Allergies: NO KNOWN ALLERGIES (Unverified , 07/31/10) Home Meds Active Scripts Naproxen (Naproxen) 500 Mg Tab, 500 MG PO BID, #30 TAB Prov:VARUN COOMBS 03/24/24 Cephalexin Monohydrate (Cephalexin) 500 Mg Cap, 1 CAP PO QID, #40 CAP Prov:VARUN COOMBS 03/24/24 Ipratropium-Albuterol (Ipratropium [place]/Albut) 1 Aleksandra Aleksandra, 1 ALEKSANDRA IN BID, #30 ML Prov:GREGORIO DAVILA MD 06/04/22 Azithromycin (ZITHROMAX TABLET) 250 Mg Tb, 250 MG PO DAILY for 5 Days, #5 TAB Prov:GREGORIO DAVILA MD 06/04/22 Albuterol Sulfate (VENTOLIN MDI) 90 Mcg Ih, 90 MCG IN Q4HWA PRN, #1 INH Prov:GREGORIO DAVILA MD 06/04/22 Pantoprazole Sodium Sesquihydr (Protonix) 40 Mg Tab, 40 MG PO DAILY, #30 TAB Prov:LULA PAK MD 11/20/21 Thiamine Hcl (Thiamine Hcl) 100 Mg Tab, 1 TAB PO DAILY, #14 TAB 3 Refills Prov:LULA PAK MD 11/20/21 Metoprolol Tartrate (Lopressor) 25 Mg Tb, 25 MG PO BID for 30 Days, #60 TAB Prov:LULA PAK MD 11/20/21 Lisinopril (Lisinopril) 5 Mg Tab, 10 MG PO DAILY, #60 TAB Prov:VAISHNAVI HILL MD 12/04/19 Metformin Hydrochloride (Metformin Hcl) 1,000 Mg Tab, 1 TAB PO BID, #60 TAB 0 Refills Prov:VAISHNAVI HILL MD 12/04/19 Information Source: Patient Mode of Arrival: Ambulatory Severity: Moderate Inability to void: None Timing: Hours Duration: Since onset, Hours Prehospital treatment: None Onset: Following sexual contact Symptoms: Other (PENILE PAIN) History of: None Location: Other (PENIS) Penile discharge: None Modifying factors: None associated signs and symptoms: None Past Medical History PAST MEDICAL HISTORY: Asthma, DM, HTN Surgical History: Denies all surgeries Family History Family History: Reviewed,noncontributory to illness, No family hx of DM Social History Smoker: Non-Smoker Alcohol: Heavy Drugs: Denies Drug Use Lives In: Home Constitutional: denies: chills, diaphoresis, fatigue, fever, malaise, sweats, weakness, others EENTM: denies: blurred vision, double vision, ear bleeding, ear discharge, ear drainage, ear pain, ear ringing, eye pain, eye redness, hearing loss, mouth pain, mouth swelling, nasal discharge, nose bleeding, nose congestion, nose pain, photophobia, tearing, throat pain, throat swelling, voice changes, others Respiratory: denies: cough, hemoptysis, orthopnea, SOB at rest, shortness of breath, SOB with excertion, stridor, wheezing, others Cardiovascular: denies: chest pain, dizzy spells, diaphoresis, Dyspnea on exertion, edema, irregular heart beat, left arm pain, lightheadedness, palpitations, PND, syncope, others Gastrointestinal: denies: abdomen distended, abdominal pain, blood streaked bowels, constipated, diarrhea, dysphagia, difficulty swallowing, hematemesis, melena, nausea, poor appetite, poor fluid intake, rectal bleeding, rectal pain, vomiting, others Genitourinary: reports: penile sore, pain, others (PENILE PAIN AND SWELLING); denies: burning, dysuria, flank pain, frequency, hematuria, incontinence, penile discharge, testicle pain, testicle swelling, urgency Neurological: denies: dizziness, fainting, headache, left sided numbness, left sided weakness, numbness, paresthesia, pre-existing deficit, right sided numbness, right sided weakness, seizure, speech problems, tingling, tremors, weakness, others Musculoskeletal: denies: back pain, gout, joint pain, joint swelling, muscle pain, muscle stiffness, neck pain, others Integumetry: reports: lumps (RING SHAPE ON PENILE REGION. ); denies: bruises, change in color, change in hair/nails, dryness, laceration, lesions, rash, wounds, others Allergic/Immunocompromised: denies: Difficulty Healing, Frequent Infections, Hives, Itching, others Hematologic/Lymphatic: denies: anemia, blood clots, easy bleeding, easy bruising, swollen glands, others Endocrine: denies: excessive hunger, excessive sweating, excessive thirst, excessive urination, flushing, intolerance to cold, intolerance to heat, unexplained weight gain, unexplained weight loss, others Psychiatric: denies: anxiety, bipolar disorder, depression, hopeless, panic disorder, schizophrenia, sleepless, suicidal, others All Other Systems: Reviewed and Negative Physical Exam General Appearance: No Apparent Distress, Obese HEENT: Normal ENT Inspection, PERRL/EOMI, Pharynx Normal, TMs Normal Neck: Full Range of Motion, Non-Tender, Normal, Normal Inspection Respiratory: Chest Non-Tender, Lungs Clear, No Accessory Muscle Use, No Respiratory Distress, Normal Breath Sounds Cardiovascular: No Edema, No JVD, No Murmur, No Gallop, Normal Peripheral Pulses, Regular Rate/Rhythm Breast Exam: Deferred Gastrointestinal: No Organomegaly, Non Tender, No Pulsatile Mass, Normal Bowel Sounds, Soft Genitalia: Foreskin (ERYTHEMATOUS, CONSTRICTED, AND SWOLLEN FORESKIN OF PENIS, NON-RETRACTABLE FORESKIN NOTED.+ PARAPHIMOSIS. ), Penis (LOCALIZED REDNESS AND SWELLING ON PENIS, NO PENILE DISCHARGE. ), Other (A FEW SKIN ABRASIONS ON PENILE FORESKIN WITH MILD BLOOD. ) Pelvic: Deferred Rectal: Deferred Extremities: No calf tenderness, Normal capillary refill, Normal inspection, Normal range of motion, Non-tender, No pedal edema Musculoskeletal : Apperance: Normal Neurologic: Alert, housekeeping associate II-XII nml as Tested, No Motor Deficits, Normal Affect, Normal Mood, No Sensory Deficits Cerebellar Function: Normal Reflexes: Normal Skin: Dry, Normal Color, Warm, Wounds (ABRASIONS ON PENILE FORESKIN. ) Peripheral Pulses: 2+ carotid (R), 2+ carotid (L) Lymphatic: No Adenopathy Was a procedure done? Was a procedure done?: Yes Sedation Sedation?: No Other Procedure Procedure PARAPHIMOSIS REDUCTION Indication PARAPHIMOSIS Anesthetic TORADOL 60MG IM AND NORCO 10/325 PO Prep ICE PACKS APPLIED TO PATIENT'S PENIS FOR 30-45 MINUTES. Success PENILE HEAD WAS PUSHED DOWN AND FORESKIN WAS PULLED BACK AND UP. FORESKIN WAS THEN REDUCED RETURNED TO ITS ORIGINAL POSITION. SWELLING WAS NOTED TO HAVE DECREASED. PATIENT TOLERATED WELL. Informed consent obtained: No Risks, benefits, and alternati: Yes Differential Diagnosis Kidney stone (Female): N/A Kidney stone (Male): N/A Penile/Scrotal: UTI, Fractured Penis, Phimosis, Other (PARAPHIMOSIS) Urinary Problem (Male): N/A Urinary Problem (Female): N/A X-Ray, Labs, Meds, VS Vital Signs Date Time Temp Pulse Resp B/P (MAP) Pulse Ox O2 Delivery O2 Flow Rate FiO2 03/24/24 09:42 87 18 156/92 03/24/24 09:01 156/92 (113) 03/24/24 06:52 83 18 98 Room Air 03/24/24 06:52 98.4 83 18 150/93 (112) 98 98.4 03/24/24 05:49 92 22 183/100 03/24/24 05:20 92 18 97 Room Air 0 03/24/24 05:20 98.4 92 18 183/100 (127) 97 Lab Test 03/24/24 09:43 03/24/24 08:56 03/24/24 08:00 03/24/24 07:57 Range/Units POC Glucose 265 H 308 H 333 H 70-106 mg/dl White Blood Count 6.4 4.4-10.8 10^3/uL Red Blood Count 4.32 L 4.5-5.90 10^6/uL Hemoglobin 13.6 13.5-17.5 g/dL Hematocrit 40.2 L 41.0-53.0 % Mean Corpuscular Volume 93.1 80.0-100.0 fL Mean Corpuscular Hemoglobin 31.6 28.0-32.0 pg Mean Corpuscular Hemoglobin Concent 33.9 32.0-36.0 g/dL Red Cell Distribution Width 14.2 11.8-14.3 % Platelet Count 135 L 140-450 10^3/uL Mean Platelet Volume 9.8 6.9-10.8 fL Neutrophils (%) (Auto) 60.0 37.0-80.0 % Lymphocytes (%) (Auto) 20.6 10.0-50.0 % Monocytes (%) (Auto) 11.3 0.0-12.0 % Eosinophils (%) (Auto) 5.1 0.0-7.0 % Basophils (%) (Auto) 3.0 H 0.0-2.0 % Neutrophils # (Auto) 3.8 1.6-8.6 10 ^3/uL Lymphocytes # (Auto) 1.3 0.4-5.4 10 ^3/uL Monocytes # (Auto) 0.7 0-1.3 10 ^3/uL Eosinophils # (Auto) 0.3 0-0.8 10 ^3/uL Basophils # (Auto) 0.2 0-0.2 10 ^3/uL Nucleated Red Blood Cells 0.0 % Sodium Level 132 L 136-145 mmol/L Potassium Level 4.8 3.5-5.1 mmol/L Chloride Level 101 98-107 mmol/L Carbon Dioxide Level 25 20-31 mmol/L Anion Gap 6 5-15 Blood Urea Nitrogen 17 9-23 mg/dL Creatinine 1.60 H 0.700-1.30 mg/dL Glomerular Filtration Rate Calc 51 >90 mL/min BUN/Creatinine Ratio 10.6 10.0-20.0 Serum Glucose 332 H 74-106 mg/dL Calcium Level 8.8 8.7-10.4 mg/dL Test 03/24/24 05:36 Range/Units Urine Color Light-yellow Yellow Urine Clarity Clear Clear Urine pH 7.0 5.0-9.0 Urine Specific [place] 1.015 1.001-1.035 Urine Protein 3+ H Negative Urine Ketones Negative Negative Urine Blood Trace H Negative /uL Urine Nitrite Negative Negative Urine Bilirubin Negative Negative Urine Urobilinogen Normal Negative mg/dL Urine Leukocyte Esterase 2+ Negative /uL Urine RBC 7 0 - 3 /hpf Urine Microscopic WBC 31 H 0-3 /HPF Urine Squamous Epithelial Cells None seen <5 /hpf Urine Bacteria None seen None Seen /hpf Urine Glucose 4+ H Normal mg/dL Current Medications Medications (Trade) Dose Ordered Sig/Carey Route Start Time Stop Time Status Last Admin Ketorolac Tromethamine (Toradol Injection) 60 mg ONCE ONCE IM 03/24/24 05:45 03/24/24 05:46 DC 03/24/24 05:47 Morphine Sulfate 2 mg ONCE ONCE IM 03/24/24 05:45 03/24/24 05:46 DC 03/24/24 05:49 Ceftriaxone Sodium (Rocephin) 1,000 mg ONCE ONCE IM 03/24/24 07:15 03/24/24 07:16 DC 03/24/24 07:29 Lidocaine HCl (Xylocaine 1%) 2 ml ONCE ONCE ID 03/24/24 07:30 03/24/24 07:31 DC 03/24/24 07:29 Acetaminophen/ Hydrocodone Bitart ([place] 10/325MG Tab) 1 tab ONCE ONCE PO 03/24/24 07:45 03/24/24 07:46 DC 03/24/24 07:45 Sodium Chloride 1,000 ml @ 1,000 mls/hr Q1H ONCE IV 03/24/24 08:00 03/24/24 08:59 DC 03/24/24 08:12 Insulin Human Regular (InsuLIN R) 6 units ONCE ONCE IV 03/24/24 09:00 03/24/24 09:01 DC 03/24/24 09:22 X-Ray, Labs, Meds, VS Comment EXTERNAL MEDICAL RECORDS REVIEWED: [NONE] INDEPENDENT HISTORIANS: [NONE] SOCIAL DETERMINANTS OF HEALTH: [NONE] LABS ORDERED: NONE REVIEWED AND INTERPRETED RESULTS: NONE IMAGING ORDERED: NONE TREATMENTS ORDERED: TORADOL 60 MG IM, ROCEPHIN 1 G IM, NORCO 10/325MG PO, ROCEPHIN 1G IV, NS 1L IV. BS RECHECK: 245 PROCEDURES PERFORMED: PARAPHIMOSIS REDUCTION. AFTER REDUCTION, PT FEELS MUCH BETTER AND PENILE PAIN AND SWELLING DECREASED. CRITICAL CARE TIME: NONE I HAVE DISCUSSED THE PATIENT WITH THE ATTENDING PHYSICIAN DR. SOUSA AND SHE AGREES WITH THE PATIENT'S PLAN OF CARE AND DISPOSITION. BASED ON HISTORY OF PRESENT ILLNESS, AND PHYSICAL EXAM, PATIENT WILL BE DISCHARGED HOME. DISCUSSED PLAN FOR DISCHARGE HOME WITH RX [KEFLEX AND NAPROX EN]. MEDICATION WARNINGS GIVEN. SHARED DECISION MAKING: PATIENT INSTRUCTED TO FOLLOW UP WITH PRIMARY CARE PROVIDER IN 1-2 DAYS FOR A REFERRAL TO UROLOGIST FOR RE-EVALUATION OF SYMPTOMS. PATIENT VERBALIZES UNDERSTANDING TO RETURN TO ED FOR NEW OR WORSENING SYMPTOMS OR IF FOLLOW UP WITH PCP CANNOT BE OBTAINED. PATIENT FEELS COMFORTABLE GOING HOME AT THIS TIME. ALL QUESTIONS ADDRESSED AT TIME OF DISCHARGE. Time of 1ST Reevaluation: 10:00 Reevaluation 1ST: Improved Patient Education/Counseling: Diagnosis, Treatment, Need For Follow Up Family Education/Counseling: Diagnosis, Treatment, Need For Follow Up Medical Screening: No EMC Exist At This Time Departure 1 Departure Time of Disposition: 10:00 Impression: Primary Impression: Paraphimosis Additional Impressions: Abrasion of penis, initial encounter Noncompliance with diabetes treatment Disposition: HOME / SELF CARE / HOMELESS Condition: Stable Additional Instructions: FOLLOW-UP WITH PCP IN 1 TO 2 DAYS FOR REFERRAL TO UROLOGIST. TAKE MEDICATIONS PRESCRIBED. RETURN TO ED FOR ANY NEW OR WORSENING SYMPTOMS. e-Prescriptions Naproxen (Naproxen) 500 Mg Tab 500 MG PO BID, #30 TAB Prov: VARUN COOMBS 03/24/24 Cephalexin Monohydrate (Cephalexin) 500 Mg Cap 1 CAP PO QID, #40 CAP Prov: VARUN COOMBS 03/24/24 Discharged With: Self Critical Care Note Critical Care Time?: No Stability Stability form required: No I personally scribed for VARUN COOMBS ([email or web address]) on 03/24/24 at 07:33. Electronically submitted by Samir Alicea ([email or web address]). I personally scribed for VARUN COOMBS ([email or web address]) on 03/24/24 at 07:42. Electronically submitted by Samir Alicea ([email or web address]). I personally scribed for VARUN COOMBS ([email or web address]) on 03/24/24 at 08:30. Electronically submitted by Samir Alicea ([email or web address]). AVRUN COOMBS Mar 24, 2024 07:33
[2024-03-24] MEDS: HYDROcodone-ACET 10/325MG TAB PO ONE (07:45)
[2024-03-24] MEDS: SODIUM CHLORIDE 0.9% 1,000 ML IV ONE (08:12)
[2024-03-24] MEDS: cefTRIAXone 1GM/50ML D5W 50 ML IV ONE (08:13)
[2024-03-24 08:18] LABS: Basophils # (auto) 0.2 10 ^3/uL (0-0.2); Eosinophils # (auto) 0.3 10 ^3/uL (0-0.8); Eosinophils % (auto) 5.1 % (0.0-7.0); Hematocrit 40.2 % (41.0-53.0); Hemoglobin 13.6 g/dL (13.5-17.5); Lymphocytes # (auto) 1.3 10 ^3/uL (0.4-5.4); Lymphocytes % (auto) 20.6 % (10.0-50.0); Mean Corpuscular Hemoglobin 31.6 pg (28.0-32.0); Mean Corpuscular Hgb Conc. 33.9 g/dL (32.0-36.0); Mean Corpuscular Volume 93.1 fL (80.0-100.0); Monocytes # (auto) 0.7 10 ^3/uL (0-1.3); Monocytes % (auto) 11.3 % (0.0-12.0); Neutrophils # (auto) 3.8 10 ^3/uL (1.6-8.6); Platelet Count (auto) 135 10^3/uL (140-450); Red Blood Cells 4.32 10^6/uL (4.5-5.90); Red Cell Distribution Width 14.2 % (11.8-14.3); White Blood Cell 6.4 10^3/uL (4.4-10.8)
[2024-03-24 08:26] LABS: Chloride 101 mmol/L (98-107); Potassium 4.8 mmol/L (3.5-5.1)
[2024-03-24 08:27] LABS: Anion Gap 6 (5-15); Calcium 8.8 mg/dL (8.7-10.4); Carbon Dioxide 25 mmol/L (20-31)
[2024-03-24 08:28] LABS: Sodium 132 mmol/L (136-145)
[2024-03-24 08:33] LABS: BUN/Creatinine Ratio 10.6 (10.0-20.0); Blood Urea Nitrogen 17 mg/dL (9-23)
[2024-03-24 09:03] LABS: Glucose 332 mg/dL (74-106)
[2024-03-24] MEDS ORDERED: CEPH500C PO (09:11)
[2024-03-24] MEDS ORDERED: NAPR-746 PO (09:11)
[2024-03-24] MEDS: InsuLIN REG 1unit/0.01ml Soln (100units/ml) IV ONE (09:22)
[2024-03-24 09:42] VITALS: BP 156/92; PULSE 87; RESP 18
== END 2024-03-24 09:58 | disposition home or self-care (01) ==
LOC: ER 04:56
DX: N47.2 Paraphimosis (principal); S30.812A Abrasion of penis, initial encounter; E11.9 Type 2 diabetes mellitus without complications; Z91.199 Patient's noncompliance with other medical treatment and regimen due to unspecified reason; I10 Essential (primary) hypertension; J45.909 Unspecified asthma, uncomplicated; X58.XXXA Exposure to other specified factors, initial encounter; Y93.89 Activity, other specified; Y92.89 Other specified places as the place of occurrence of the external cause; Y99.8 Other external cause status
CPT/HCPCS: 36415; 54450; 80048; 81001; 82962; 85025; 96361; 96372; 96374; 99285; J0696; J1815; J1885; J2003; J2270; J7030